=== PATIENT | male | born 1935 | race Caucasian/White ===

== ENCOUNTER 2019-10-26 18:50 | Inpatient (IN) | payer MEDICARE ==
[~2019-10-26] VITALS: Ht 182.9 cm; Wt 86.2 kg
--- NOTE | 2019-10-26 19:10 | NUR ---
PT MARGUERITE FROM [facility]. PT WAS MEDICALLY CLEARED AT [facility] AND PLACED ON 5150 ON 10/26/19 @ 1040, DANGER TO SELF WITH PLAN TO OVERDOSE. PT ARRIVED TO [facility] ER NEEDING RAPID COVID TEST. PT CALM AND COOPERATIVE. VITAL SIGNS STABLE. NO ACUTE DISTRESS NOTED AT THIS TIME. SITTER AT BEDSIDE. WILL CONTINUE TO MONITOR
--- NOTE | 2019-10-26 19:36 | NUR ---
COVID SWAB COLLECTED. CALLED LAB FOR UNDERGROUND UTILITY LOCATOR
[2019-10-26 20:00] VITALS: BP 162/95
--- NOTE | 2019-10-26 21:26 | NUR ---
Ej swain in [facility] - 10/26/19 at 2138 by DANDRE JUAN HERNANDEZ
--- NOTE | 2019-10-26 21:26 | NUR ---
REC'D NEG COVID RESULTS BY LYNETTE FROM LAB. AWARE
--- NOTE | 2019-10-26 21:32 | NUR ---
REPORT GIVEN TO TANIYA EDGAR FOR DANIELLE
--- NOTE | 2019-10-26 21:48 | NUR ---
LAB CALLED REGARDING COVID NEGATIVE RESULT.
--- NOTE | 2019-10-26 21:59 | NUR ---
PT TRANSFERRED TO [facility] IN STABLE CONDITION
--- NOTE | 2019-10-26 22:00 | NUR ---
GOS GARDEN IMPLEMENT MECHANIC NOTES: ADMITTED 84 Y/O MALE PATIENT FROM [facility] TO [facility] ER & THEN TO [facility] ON 5150 HOLD, DANGER TO HIMSELF, SUICIDAL IDEATION WITH PLAN & INTENTION TO OVERDOSE RELATED TO RECENT FINANCIAL STRESSORS. PT. REPORTS VERY SEVERE DEPRESSION & ANXIETY & NOT ABLE TO CONTRACT FOR SAFETY IF DISCHARGED. UPON FACE TO FACE ASSESSMENT PATIENT IS A & O X 3 WITH POOR CONCENTRATION, QUIET, DEPRESSED, VERBALIZED SI DUE TO MONEY PROBLEM BUT NO PLAN SPECIFIED. ANXIOUS, DISORGANIZED, DISHEVELED. PT. IS POOR HISTORIAN, POOR INSIGHT, POOR JUDGEMENT, PT. SIGNED ADMISSION CONSENT PAPERS. BOTH MD AWARE AND NOTIFIED OF THE ADMISSION. BELONGINGS/CONTRABAND DONE. SKIN ASSESSMENT DONE. PATIENT ALLOWED UPPER/LOWER EXTREMITIES ASSESSMENT ONLY. PT. RIGHTS DISCUSS BY MANAGER BUSINESS SYSTEMS, PROVIDE THE PT. WITH HANDBOOK, AND MEDICATIONS GUIDE, ENVIRONMENTAL SAFETY CHECK DONE, ENCOURAGED PT. VERBALIZE HIS FEELINGS TO STAFF, ORIENTED TO UNIT POLICY, NO ACUTE DISTRESS NOTED, VITAL SIGNS WNL. DENIES ANY PAIN AT THIS TIME, ENVIRONMENTAL SAFETY CHECKS DONE. BED ALARM ON. BED IN LOW LOCKED POSITION. PT. IS IN LINE OF SIGHT OBSERVATION, Q 15 MINUTES FREQUENT VISUAL CHECKS BEING DONE. WILL CONTINUE TO MONITOR Q15 FOR SAFETY AND BEHAVIOR.
--- NOTE | 2019-10-26 22:15 | NUR ---
GPS RN NOTE CALLED PATIENT'S BRANDY WELDON & SPOKE TO HER & INFORMED HER ABOUT PATIENT'S ADMISSION TO [facility]IT IN ROOM 215-2.
[2019-10-26 22:45] VITALS: BP 155/84
[2019-10-26] MEDS ORDERED: MAGNESIUM HYDROXIDE 30 ML UDC PO PRN (23:30)
[2019-10-26] MEDS ORDERED: MAG HYDROX/AL HYDROX/SIMETH 30 ML UDC PO PRN (23:30)
[2019-10-26] MEDS ORDERED: LORAZEPAM 0.5 MG TABLET PO PRN (23:30)
[2019-10-26] MEDS ORDERED: ACETAMINOPHEN 325 MG TABLET PO PRN (23:30)
[2019-10-26] MEDS ORDERED: BLOOD SUGAR DIAGNOSTIC 1 EACH STRIP IN ONE (23:30)
[2019-10-27] MEDS ORDERED: UBID10CA9 PO (00:42)
[2019-10-27] MEDS ORDERED: PANT40TA2 PO (00:42)
[2019-10-27] MEDS ORDERED: ASPI-1420 PO (00:42)
[2019-10-27] MEDS ORDERED: NIFE30TA2 PO (00:42)
[2019-10-27] MEDS ORDERED: POTA20TA10 PO (00:42)
[2019-10-27] MEDS ORDERED: ATEN50TA PO (00:42)
[2019-10-27] MEDS ORDERED: DUTA0.5C PO (00:42)
[2019-10-27] MEDS ORDERED: CHOL400T11 PO (00:42)
[2019-10-27] MEDS ORDERED: METF-442 PO (00:42)
[2019-10-27] MEDS ORDERED: FESO4TAB PO (00:42)
[2019-10-27] MEDS ORDERED: HYDR-4076 PO (00:42)
[2019-10-27] MEDS ORDERED: ROSU20TA2 PO (00:42)
[2019-10-27] MEDS ORDERED: ESCI20TA PO (00:42)
[2019-10-27] MEDS ORDERED: CHLO25TA11 PO (00:42)
[2019-10-27] MEDS ORDERED: LOSA100T3 PO (00:42)
[2019-10-27] MEDS ORDERED: TAMS-12 PO (00:45)
[2019-10-27] MEDS ORDERED: IPRA21SP BNOSTRILS (00:47)
[2019-10-27] MEDS ORDERED: DOCO1CAP4 PO (00:53)
--- NOTE | 2019-10-27 01:00 | NUR ---
MED RECON DONE BY Rhiannon AGUILAR
--- NOTE | 2019-10-27 02:00 | NUR ---
GPS RN NOTE: PATIENT HAD BILATERAL LOWER EXTREMITIES SYLVAIN HOSE STOCKINGS ON UPON ADMISSION FROM [facility], PATIENT REFUSED TO TAKE THEM OFF & STATED," I HAVE HIGH BP & NURSE PUT THEM ON ME AT OTHER HOSPITAL TO PREVENT BP FLUCTUATIONS & I WANT TO KEEP THEM ON." WILL ENDORSE TO AM RN FOR CLOSE MONITORING FOR SAFETY & BEHAVIOR.
--- NOTE | 2019-10-27 06:36 | NUR ---
GPS RN NOTE PATIENT HAS BILATERAL HEARING AIDS IN A CASE WITH A COMPLEX CARE NURSE PRACTITIONER & CHARGING AT NURSES STATION AT THIS TIME. WILL ENDORSE TO AM RN FOR CONTINUITY OF CARE.
--- NOTE | 2019-10-27 06:42 | NUR ---
GPS RN CLOSING NOTE PATIENT HAS SLEPT WELL AT NIGHT AFTER HIS ADMISSION TO [facility]. NO ACUTE CHANGES NOTED. SLEEPING AT THIS TIME. NO BEHAVIOR EPISODE NOTED.
[2019-10-27 07:16] LABS: ALANINE AMINOTRANSFERASE 12 U/L (12-78); ALBUMIN 3.3 g/dL (3.4-5.0); ALKALINE PHOSPHATASE 59 U/L (46-116); ASPARTATE AMINOTRANSFERASE 12 U/L (15-37); BILIRUBIN,TOTAL 0.5 mg/dL (0.2-1.0); CALCIUM, SERUM 8.7 mg/dL (8.5-10.1); CARBON DIOXIDE 27 mmol/L (21-32); CHLORIDE 102 mmol/L (98-107); CREATININE 1.4 mg/dL (0.6-1.3); GLUCOSE 166 mg/dL (74-106); POTASSIUM 3.7 mmol/L (3.5-5.1); SODIUM SERUM 138 mmol/L (136-145); TOTAL PROTEIN, SERUM 6.2 g/dL (6.4-8.2); UREA NITROGEN, BLOOD 31 mg/dL (7-18)
[2019-10-27 07:22] LABS: CHOLESTEROL 152 mg/dL (<200); HDL CHOLESTEROL 34 mg/dL (40-60); LDL 101 mg/dL (0-99); TRIGLYCERIDES 124 mg/dL (30-150)
[2019-10-27 08:00] VITALS: BP 150/77
[2019-10-27] MEDS: POTASSIUM CHLORIDE 20 MEQ TAB.PRT.SR PO SCH ×2 (08:53→16:05)
[2019-10-27] MEDS: DUTASTERIDE (0.5 MG) 0.5 MG CAPSULE PO SCH (08:53)
[2019-10-27] MEDS: PANTOPRAZOLE 40 MG TABLET.DR PO SCH (08:53)
[2019-10-27] MEDS: ASPIRIN EC 81 MG TABLET.DR PO SCH (08:53)
[2019-10-27] MEDS: hydrALAZINE HCL 25 MG TABLET PO SCH ×2 (08:54→21:00)
[2019-10-27] MEDS: LOSARTAN POTASSIUM 50 MG TABLET PO SCH (08:54)
[2019-10-27] MEDS: ATENOLOL 50 MG TABLET PO SCH ×2 (08:54→16:05)
[2019-10-27] MEDS: NIFEdipine XL (30MG) 30 MG TAB PO SCH (08:55)
[2019-10-27] MEDS ORDERED: DOCOSAHEXANOIC ACID PO SCH (09:00)
[2019-10-27] MEDS ORDERED: UBIDECARENONE 10 MG PO SCH (09:00)
[2019-10-27] MEDS ORDERED: EPA PO SCH (09:00)
[2019-10-27] MEDS ORDERED: METFORMIN 500 MG TABLET PO SCH (09:00)
[2019-10-27] MEDS ORDERED: CHLORTHALIDONE 25 MG PO SCH (09:00)
[2019-10-27] MEDS: CHOLECALCIFEROL 1,000 UNIT TABLET (VIT D3) PO SCH (09:44)
--- NOTE | 2019-10-27 11:23 | NUR ---
FAMILY CONTACT: DARIAN contacted pts Marilee ([phone]) to discuss collateral information, treatment, and discharge plan. DARIAN left a voicemail for callback.
--- NOTE | 2019-10-27 11:30 | NUR ---
GPS/RN-NOTES BUTTER GRADER CALLED PATIENT'S REGARDING X3 NON FORMULARY MEDICATIONS,STILL AWAITING HER CALL BACK.
--- NOTE | 2019-10-27 12:20 | NUR ---
INITIAL DISCHARGE PLAN: Once stable for discharge, pt will return home to [facility] [place] [address]. SW attempted to speak with Marilee ([phone]) and left a voicemail for callback. DARIAN will help form a safe and proper discharge in collaboration with .
[2019-10-27] MEDS ORDERED: DEXTROSE 50%-WATER 50 ML DISP.SYRIN IV PRN (14:30)
[2019-10-27 16:00] VITALS: BP 122/70
[2019-10-27] MEDS: DIVALPROEX SODIUM 250 MG TABLET.DR PO SCH (16:07)
[2019-10-27] MEDS: BLOOD SUGAR DIAGNOSTIC 1 EACH STRIP VI SCH ×2 (16:42→21:40)
[2019-10-27] MEDS: INSULIN REGULAR, HUMAN 100 UNIT/ML 3 ML VIAL SQ PRN (17:38)
--- NOTE | 2019-10-27 18:38 | NUR ---
GPS/RN-NOTES STILL AWAITING FOR CALL BACK FROM THE REGARDING NON FORMULARY MEDICATIONS. CALLED TWICE BUT NO CALL BACK AT THIS TIME,ALSO NEED URINE COLLECTION FOR URINALYSIS, UNABLE TO COLLECT AT THIS TIME,PATIENT STATED" I JUST WENT TO THE BATHROOM". WILL ENDORSE TO INCOMING NURSE FOR COLLECTION AND CONTINUITY OF CARE.
--- NOTE | 2019-10-27 18:51 | NUR ---
GPS/RN-NOTES BILATERAL HEARING AID WITH THE PATIENT .PATIENT REQUESTING TO HAVE IT ON UNTIL 2099. WILL ENDORSE TO INCOMING NURSE TO FOLLOW UP AND TO CHARGE THE HEARING AID.
[2019-10-27 19:34] VITALS: BP 128/74
[2019-10-27 21:20] LABS: APPEARANCE,URINE CLEAR (CLEAR); BILIRUBIN,URINE NEGATIVE (NEGATIVE); BLOOD, URINE NEGATIVE Ery/uL (NEGATIVE); COLOR,URINE YELLOW (YELLOW); KETONES,URINE NEGATIVE (NEGATIVE); LEUKOCYTE ESTERASE ,URINE NEGATIVE (NEGATIVE); NITRITE, URINE NEGATIVE (NEGATIVE); PROTEIN,URINE 30 mg/dl (NEGATIVE); UGLUCOSE NEGATIVE (NEGATIVE); UROBILINOGEN,URINE 0.2 EU/dL (0.2)
[2019-10-27 21:26] LABS: BACTERIA,URINE Few /HPF (None Seen); HYALINE CASTS, URINE Few /LPF (None Seen); RBC,URINE 0-2 /HPF (0-2); SQUAMOUS EPITHELIAL CELL,UR Few /HPF (None Seen); WBC,URINE 0-2 /HPF (0-3)
[2019-10-27 21:27] LABS: EOSINOPHIL,URINE None Seen
[2019-10-27] MEDS: TAMSULOSIN 0.4 MG CAP.SR.24H PO SCH (21:28)
[2019-10-27] MEDS: ATORVASTATIN 40 MG TABLET PO SCH (21:28)
[2019-10-27 21:31] LABS: CREATININE, URINE 184.3 MG/DL (30.0-125.0); URINE TOTAL PROTEIN 66.5 mg/dL (0-11.9)
[2019-10-27] MEDS: *INSULIN REGULAR(HUMULIN R)HUM 100 UNIT/ML VIAL SQ PRN (21:35)
[2019-10-27] MEDS: TEMAZEPAM 7.5 MG CAPSULE PO PRN (21:38)
--- NOTE | 2019-10-27 21:40 | NUR ---
GPS RN NOTES: PATIENT IN THE ROOM, VITAL SIGNS RECHECKED BP142/74, HR-56. HYDRALAZINE MEDICATION NOT ADMINISTERED PATIENT HAS A LOW HEART RATE THIS TIME. PATIENT THOUGH REQUESTED FOR SLEEPING MEDICATION. RESTORIL 7.5 MG GIVEN ORALLY PRN ORDER. WILL CONTINUE TO MONITOR PATIENT.
[2019-10-28 07:16] LABS: BASOPHILS % (AUTO) 0.3 % (0.0-2.0); EOSINOPHILS % (AUTO) 2.7 % (0.0-6.0); HEMATOCRIT 41 % (39-51); HEMOGLOBIN 13.5 g/dL (13.5-17.5); LYMPHOCYTES # (AUTO) 1.7 /CMM (0.8-4.8); LYMPHOCYTES % (AUTO) 30.5 % (20.0-44.0); MEAN CORPUSCULAR HGB CONC 33 g/dl (31.0-36.0); MEAN CORPUSCULAR VOLUME 89 fL (80-96); MONOCYTES # (AUTO) 0.5 /CMM (0.1-1.30); MONOCYTES % (AUTO) 8.6 % (2.0-12.0); NEUTROPHILS # (AUTO) 3.2 /CMM (1.8-8.9); NEUTROPHILS % (AUTO) 57.9 % (43.0-81.0); PLATELET COUNT (AUTO) 199 /CMM (150-450); RED BLOOD CELL COUNT(AUTO) 4.56 MIL/uL (4.5-6.0); WHITE BLOOD COUNT (AUTO) 5.6 K/uL (4.3-11.0)
[2019-10-28] MEDS: BLOOD SUGAR DIAGNOSTIC 1 EACH STRIP VI SCH ×4 (07:31→21:12)
[2019-10-28] MEDS: INSULIN REGULAR, HUMAN 100 UNIT/ML 3 ML VIAL SQ PRN ×2 (07:32→12:07)
[2019-10-28 07:39] LABS: CREATINE KINASE, TOTAL 27 U/L (39-308); THYROID STIMULATING HORMONE 2.428 uIU/mL (0.358-3.74)
[2019-10-28 07:41] LABS: ALANINE AMINOTRANSFERASE 13 U/L (12-78); ALBUMIN 3.2 g/dL (3.4-5.0); ALKALINE PHOSPHATASE 56 U/L (46-116); ASPARTATE AMINOTRANSFERASE 13 U/L (15-37); BILIRUBIN,TOTAL 0.6 mg/dL (0.2-1.0); CALCIUM, SERUM 8.6 mg/dL (8.5-10.1); CHLORIDE 103 mmol/L (98-107); CREATININE 1.9 mg/dL (0.6-1.3); GLUCOSE 133 mg/dL (74-106); MAGNESIUM 1.7 mg/dL (1.8-2.4); POTASSIUM 3.9 mmol/L (3.5-5.1); SODIUM SERUM 139 mmol/L (136-145); TOTAL PROTEIN, SERUM 6.2 g/dL (6.4-8.2); UREA NITROGEN, BLOOD 39 mg/dL (7-18)
[2019-10-28 07:49] LABS: CARBON DIOXIDE 25 mmol/L (21-32)
[2019-10-28] MEDS: PANTOPRAZOLE 40 MG TABLET.DR PO SCH (07:55)
[2019-10-28 08:00] VITALS: BP 123/69
[2019-10-28] MEDS: DIVALPROEX SODIUM 250 MG TABLET.DR PO SCH ×3 (08:56→16:52)
[2019-10-28] MEDS: LINAGLIPTIN 5 MG TABLET PO SCH (08:56)
[2019-10-28] MEDS: hydrALAZINE HCL 25 MG TABLET PO SCH ×2 (08:56→21:08)
[2019-10-28] MEDS: POTASSIUM CHLORIDE 20 MEQ TAB.PRT.SR PO SCH (08:56)
[2019-10-28] MEDS: NIFEdipine XL (30MG) 30 MG TAB PO SCH (08:56)
[2019-10-28] MEDS: DUTASTERIDE (0.5 MG) 0.5 MG CAPSULE PO SCH (08:56)
[2019-10-28] MEDS: ASPIRIN EC 81 MG TABLET.DR PO SCH (08:56)
[2019-10-28] MEDS: CHOLECALCIFEROL 1,000 UNIT TABLET (VIT D3) PO SCH (08:56)
[2019-10-28] MEDS: ATENOLOL 50 MG TABLET PO SCH ×2 (08:57→16:52)
[2019-10-28] MEDS: LOSARTAN POTASSIUM 50 MG TABLET PO SCH (08:57)
--- NOTE | 2019-10-28 09:40 | NUR ---
GPS/RN-NOTES DR. SALOMON IN THE UNIT WITH VERBAL ORDER OF 1:1 SITTER FOR SUICIDAL PRECAUTION. NOTED AND CARRIED OUT.RETIREMENT BENEFITS SPECIALIST MADE AWARE BY THE CHARGE NURSE.
--- NOTE | 2019-10-28 10:00 | NUR ---
GPS/RN-NOTES PATIENT LAYING IN BED GUARDED REPAIRER SASH AND DOOR ASSESS FACE TO FACE AND PATIENT VERBALIZED SUICIDAL IDEATION WITH PLAN TO CUT WRIST WITH SHARP OBJECT. REDIRECTED AND ENCOURAGE PATIENT TO ATTEND GROUP ACTIVITY AND VERBALIZE FEELINGS AND CONCERN TO THE STAFF.PATIENT PREFERS TO STAY IN THE ROOM . WILL CONT. 1:1 MONITORING FOR SAFETY.
[2019-10-28] MEDS: ESCITALOPRAM OXALATE (10 MG) 10 MG TABLET PO SCH (10:02)
[2019-10-28] MEDS ORDERED: MAGNESIUM OXIDE 400 MG TABLET PO ONE (12:00)
--- NOTE | 2019-10-28 12:55 | NUR ---
GPS/RN-NOTES DR. DURBIN MADE ROUNDS AROUND 11 AM ,AND MADE AWARE OF PATIENT LABS RESULTS AND STATED" ENCOURAGED PATIENT TO INCREASE FLUID INTAKE AND WILL CHECK LABS TOMORROW. PATIENT MADE AWARE AND VERBALIZED UNDERSTANDING.
[2019-10-28 16:00] VITALS: BP 117/67
[2019-10-28 20:21] VITALS: BP 129/77
[2019-10-28] MEDS: ATORVASTATIN 40 MG TABLET PO SCH (21:08)
[2019-10-28] MEDS: TAMSULOSIN 0.4 MG CAP.SR.24H PO SCH (21:08)
[2019-10-28] MEDS: *INSULIN REGULAR(HUMULIN R)HUM 100 UNIT/ML VIAL SQ PRN (21:17)
[2019-10-28] MEDS: TEMAZEPAM 7.5 MG CAPSULE PO PRN (22:10)
--- NOTE | 2019-10-28 22:13 | NUR ---
GPS RN NOTE: INSOMNIA PT. C/O UNABLE TO SLEEP. ADMINISTERED RESTORIL 7.5 MG PO PRN ORDERED. WILL CONTINUE TO MONITOR FOR SAFETY AND BEHAVIOR.
[2019-10-28 22:33] LABS: CREATININE, URINE 195.6 MG/DL (30.0-125.0); URINE TOTAL PROTEIN 56.1 mg/dL (0-11.9)
[2019-10-28 23:00] LABS: APPEARANCE,URINE CLEAR (CLEAR); BILIRUBIN,URINE NEGATIVE (NEGATIVE); BLOOD, URINE NEGATIVE Ery/uL (NEGATIVE); COLOR,URINE YELLOW (YELLOW); KETONES,URINE NEGATIVE (NEGATIVE); LEUKOCYTE ESTERASE ,URINE NEGATIVE (NEGATIVE); NITRITE, URINE NEGATIVE (NEGATIVE); PROTEIN,URINE 30 mg/dl (NEGATIVE); UGLUCOSE NEGATIVE (NEGATIVE); UROBILINOGEN,URINE 0.2 EU/dL (0.2)
[2019-10-29 00:02] LABS: BACTERIA,URINE None seen /HPF (None Seen); RBC,URINE 0-2 /HPF (0-2)
[2019-10-29 00:03] LABS: HYALINE CASTS, URINE Few /LPF (None Seen); SQUAMOUS EPITHELIAL CELL,UR Few /HPF (None Seen)
[2019-10-29 03:03] LABS: EOSINOPHIL,URINE None Seen
--- NOTE | 2019-10-29 06:15 | NUR ---
GPS RN NOTE: REQUESTED SITTER FOR DAY SHIFT. SPACE PLANNER UNABLE TO PROVIDE AT THIS TIME
[2019-10-29 06:56] LABS: BASOPHILS % (AUTO) 0.3 % (0.0-2.0); EOSINOPHILS % (AUTO) 2.8 % (0.0-6.0); HEMATOCRIT 42 % (39-51); LYMPHOCYTES % (AUTO) 23.4 % (20.0-44.0); MEAN CORPUSCULAR HGB CONC 33 g/dl (31.0-36.0); MEAN CORPUSCULAR VOLUME 90 fL (80-96); MONOCYTES % (AUTO) 7.3 % (2.0-12.0); NEUTROPHILS % (AUTO) 66.2 % (43.0-81.0); PLATELET COUNT (AUTO) 188 /CMM (150-450); WHITE BLOOD COUNT (AUTO) 6.9 K/uL (4.3-11.0)
[2019-10-29 06:57] LABS: LYMPHOCYTES # (AUTO) 1.6 /CMM (0.8-4.8); MONOCYTES # (AUTO) 0.5 /CMM (0.1-1.30); NEUTROPHILS # (AUTO) 4.6 /CMM (1.8-8.9)
[2019-10-29 06:59] LABS: CALCIUM, SERUM 8.8 mg/dL (8.5-10.1); CARBON DIOXIDE 26 mmol/L (21-32); CHLORIDE 103 mmol/L (98-107); CREATININE 1.7 mg/dL (0.6-1.3); GLUCOSE 141 mg/dL (74-106); POTASSIUM 3.8 mmol/L (3.5-5.1); SODIUM SERUM 138 mmol/L (136-145); UREA NITROGEN, BLOOD 39 mg/dL (7-18)
[2019-10-29 07:28] LABS: PTH, INTACT 40 pg/mL (15-65)
--- NOTE | 2019-10-29 07:36 | NUR ---
GPS/RN-NOTES RECEIVED PATIENT LAYING IN BED AWAKE,ALERT X4 ,CALM,GUARDED, FLAT AFFECT WITH DEPRESSED MOOD,NO ACUTE DISTRESS NOTED. THERAPIST RESPIRATORY INTERVIEWED PATIENT IF HE IS SUICIDAL,PATIENT STATED"YES,I WILL CUT MY WRIST WITH SHARP OBJECTS". ENCOURAGED PATIENT TO VERBALIZE FEELINGS AND CONCERN TO THE STAFF AND ATTEND GROUP ACTIVITY TODAY.NO SITTER PROVIDED.CHARGE NURSE IS AWARE. WILL CONT. MONITORING Q15 MINS. FOR SAFETY. Addendum: 10/29/19 at 1118 by ANUP MEIER RN IN ADDITION TO MY ABOVE NOTES ORDER BOOKER WAS AWARE.
[2019-10-29] MEDS: BLOOD SUGAR DIAGNOSTIC 1 EACH STRIP VI SCH ×4 (07:49→21:09)
[2019-10-29 08:00] VITALS: BP 133/82
[2019-10-29] MEDS: DUTASTERIDE (0.5 MG) 0.5 MG CAPSULE PO SCH (08:29)
[2019-10-29] MEDS: ASPIRIN EC 81 MG TABLET.DR PO SCH (08:29)
[2019-10-29] MEDS: PANTOPRAZOLE 40 MG TABLET.DR PO SCH (08:29)
[2019-10-29] MEDS: DIVALPROEX SODIUM 250 MG TABLET.DR PO SCH ×3 (08:29→16:55)
[2019-10-29] MEDS: CHOLECALCIFEROL 1,000 UNIT TABLET (VIT D3) PO SCH (08:29)
[2019-10-29] MEDS: LINAGLIPTIN 5 MG TABLET PO SCH (08:29)
[2019-10-29] MEDS: ESCITALOPRAM OXALATE (10 MG) 10 MG TABLET PO SCH (08:29)
[2019-10-29] MEDS: NIFEdipine XL (30MG) 30 MG TAB PO SCH (08:30)
[2019-10-29] MEDS: ATENOLOL 50 MG TABLET PO SCH ×2 (08:30→16:55)
[2019-10-29] MEDS: hydrALAZINE HCL 25 MG TABLET PO SCH ×2 (08:30→21:00)
[2019-10-29] MEDS: TOLTERODINE 2 MG CAP.SR PO SCH (08:32)
[2019-10-29] MEDS: INSULIN REGULAR, HUMAN 100 UNIT/ML 3 ML VIAL SQ PRN ×2 (08:39→12:07)
--- NOTE | 2019-10-29 13:57 | NUR ---
Dr. Miller came in the unit and ordered to start an IV of NS 1 liter at 125 cc/hr x 1 liter.
[2019-10-29] MEDS ORDERED: IV NS 0.9% 1,000 ML IV ONE (14:00)
[2019-10-29 16:00] VITALS: BP 126/73
--- NOTE | 2019-10-29 18:33 | NUR ---
GPS/RN CLOSING NOTES PATIENT LAYING IN BED INTERMITTENTLY SLEEPING CALM,QUIET NO ACUTE DISTRESS NOTED. PATIENT ON IV FLUID OF NS @ 125MG/HR X1 BAG, INFUSING WELL,WELL TOLERATED. IV SITE ON RIGHT HAND GAUGE 22 INTACT NO S/SX OF COMPLICATION NOTED. ALL NEEDS ATTENDED AND ANTICIPATED. WILL CONT. MONITORING FOR SAFETY AND BEHAVIOR. WILL ENDORSE TO INCOMING NURSE FOR CONTINUITY OF CARE. Addendum: 10/29/19 at 1856 by ANUP MEIER RN BILATERAL HEARING AID WITH PATIENT ,WILL ENDORSE TO INCOMING NURSE.
[2019-10-29 20:00] VITALS: BP 139/73
[2019-10-29] MEDS: ATORVASTATIN 40 MG TABLET PO SCH (21:07)
[2019-10-29] MEDS: TAMSULOSIN 0.4 MG CAP.SR.24H PO SCH (21:08)
[2019-10-29] MEDS: *INSULIN REGULAR(HUMULIN R)HUM 100 UNIT/ML VIAL SQ PRN (21:11)
--- NOTE | 2019-10-29 21:19 | NUR ---
GPS RN NOTES: HELD HYDRALAZINE HELD PTS HYDRALAZINE 25 MG PO DUE AT 2100 DUE TO HEART RATE LESS THAN 60. RECHECKED HEART RATE W/ NOTED 58. CONTINUE TO MONITOR. NO SOB. NO RESP DISTRESS.
[2019-10-29 22:05] VITALS: BP 139/75
--- NOTE | 2019-10-29 22:26 | NUR ---
GPS RN NOTE: INSOMNIA PT. C/O UNABLE TO SLEEP. VITALS CHECKED WNL. NO RESP DISTRESS. BREATHING EVEN AND UNLABORED. NO RESP DISTRESS. NO PAIN AT THIS TIME. ADMINISTERED RESTORIL 7.5 MG PO PRN ORDERED. WILL CONTINUE TO MONITOR FOR SAFETY AND BEHAVIOR.
[2019-10-29] MEDS: TEMAZEPAM 7.5 MG CAPSULE PO PRN (22:30)
[2019-10-30 08:00] VITALS: BP 147/75
[2019-10-30 08:18] LABS: BASOPHILS % (AUTO) 0.4 % (0.0-2.0); EOSINOPHILS % (AUTO) 2.7 % (0.0-6.0); HEMATOCRIT 39 % (39-51); HEMOGLOBIN 13.2 g/dL (13.5-17.5); LYMPHOCYTES # (AUTO) 1.4 /CMM (0.8-4.8); LYMPHOCYTES % (AUTO) 22.9 % (20.0-44.0); MEAN CORPUSCULAR HGB CONC 34 g/dl (31.0-36.0); MEAN CORPUSCULAR VOLUME 89 fL (80-96); MONOCYTES # (AUTO) 0.5 /CMM (0.1-1.30); MONOCYTES % (AUTO) 8.2 % (2.0-12.0); NEUTROPHILS % (AUTO) 65.8 % (43.0-81.0); PLATELET COUNT (AUTO) 188 /CMM (150-450); WHITE BLOOD COUNT (AUTO) 6.1 K/uL (4.3-11.0)
[2019-10-30 08:24] LABS: CALCIUM, SERUM 8.3 mg/dL (8.5-10.1); CARBON DIOXIDE 26 mmol/L (21-32); CHLORIDE 104 mmol/L (98-107); CREATININE 1.4 mg/dL (0.6-1.3); GLUCOSE 125 mg/dL (74-106); MAGNESIUM 1.6 mg/dL (1.8-2.4); PHOSPHORUS 3.5 mg/dL (2.5-4.9); POTASSIUM 3.8 mmol/L (3.5-5.1); SODIUM SERUM 138 mmol/L (136-145); UREA NITROGEN, BLOOD 32 mg/dL (7-18)
[2019-10-30] MEDS: LINAGLIPTIN 5 MG TABLET PO SCH (08:52)
[2019-10-30] MEDS: NIFEdipine XL (30MG) 30 MG TAB PO SCH (08:52)
[2019-10-30] MEDS: PANTOPRAZOLE 40 MG TABLET.DR PO SCH (08:53)
[2019-10-30] MEDS: BLOOD SUGAR DIAGNOSTIC 1 EACH STRIP VI SCH ×4 (08:53→21:49)
[2019-10-30] MEDS: ASPIRIN EC 81 MG TABLET.DR PO SCH (08:53)
[2019-10-30] MEDS: CHOLECALCIFEROL 1,000 UNIT TABLET (VIT D3) PO SCH (08:53)
[2019-10-30] MEDS: ATENOLOL 50 MG TABLET PO SCH ×2 (08:53→17:01)
[2019-10-30] MEDS: DUTASTERIDE (0.5 MG) 0.5 MG CAPSULE PO SCH (08:57)
[2019-10-30] MEDS: hydrALAZINE HCL 25 MG TABLET PO SCH ×2 (08:57→21:25)
[2019-10-30] MEDS: DIVALPROEX SODIUM 250 MG TABLET.DR PO SCH ×3 (08:57→17:00)
[2019-10-30] MEDS: ESCITALOPRAM OXALATE (10 MG) 10 MG TABLET PO SCH (08:58)
[2019-10-30] MEDS: TOLTERODINE 2 MG CAP.SR PO SCH (09:12)
[2019-10-30] MEDS ORDERED: MAGNESIUM OXIDE 400 MG TABLET PO ONE (09:30)
--- NOTE | 2019-10-30 11:25 | NUR ---
GPS/RN-NOTES RECEIVED PATIENT LAYING IN BED AWAKE,ALERT X4 ISOLATIVE ,GUARDED, DEPRESSED MOOD,MINIMUM INTERACTION WITH STAFF. PATIENT EXPRESSING SUICIDAL THOUGHTS WITH THE PLAN TO CUT HIS WRIST. PATIENT STATED"I WILL DO IT, I WILL DO IT ". ENCOURAGED PATIENT TO VERBALIZE FEELINGS AND CONCERN TO THE STAFF 1:1 SITTER AT THE BED SIDE WILL CONT. MONITORING Q15 MINS. FOR SAFETY AND BEHAVIOR NOTIFIED
[2019-10-30] MEDS: INSULIN REGULAR, HUMAN 100 UNIT/ML 3 ML VIAL SQ PRN ×2 (11:56→17:29)
--- NOTE | 2019-10-30 14:26 | NUR ---
GPS RN NOTE: DR ISBELL NOTIFIED OT PE TODAY LAB RESULT, NO NEW ORDERS AT THIS TIME, LIVE HEP LOC INTACT.
[2019-10-30 16:00] VITALS: BP 120/61
--- NOTE | 2019-10-30 20:05 | NUR ---
GPS-RN OPENING NOTE: RECEIVED PATIENT AWAKE, A/OX3, NO ACUTE DISTRESS NOTED. GUARDED, DEPRESSED MOOD, MED COMPLIANT, PATIENT STILL VERBALIZING SUICIDAL PLAN TO CUT WRIST WITH SHARP OBJECTS. DENIES HI/AVH AT THIS TIME. ON 1:1 SITTER AT BEDSIDE FOR SAFETY AND MONITORING. AMBULATES INDEPENDENTLY. SAFETY PRECAUTIONS IMPLEMENTED. NO AGITATION NOTED. WILL CONTINUE TO MONITOR FOR SAFETY AND BEHAVIOR.
[2019-10-30 20:26] VITALS: BP 132/83
[2019-10-30] MEDS: ATORVASTATIN 40 MG TABLET PO SCH (21:25)
[2019-10-30] MEDS: TAMSULOSIN 0.4 MG CAP.SR.24H PO SCH (21:25)
[2019-10-30] MEDS: TEMAZEPAM 7.5 MG CAPSULE PO PRN (21:49)
--- NOTE | 2019-10-30 21:51 | NUR ---
GPS RN NOTE: INSOMNIA PATIENT C/O UNABLE TO SLEEP. ADMINISTERED RESTORIL 7.5 MG 1 CAP PO GIVEN. WILL CONTINUE TO MONITOR FOR EFFECTIVENESS.
[2019-10-30] MEDS: *INSULIN REGULAR(HUMULIN R)HUM 100 UNIT/ML VIAL SQ PRN (21:55)
[2019-10-31] MEDS: BLOOD SUGAR DIAGNOSTIC 1 EACH STRIP VI SCH ×4 (07:40→21:23)
[2019-10-31 07:59] LABS: CALCIUM, SERUM 8.6 mg/dL (8.5-10.1); CARBON DIOXIDE 26 mmol/L (21-32); CHLORIDE 105 mmol/L (98-107); CREATININE 1.4 mg/dL (0.6-1.3); GLUCOSE 118 mg/dL (74-106); MAGNESIUM 1.6 mg/dL (1.8-2.4); POTASSIUM 3.3 mmol/L (3.5-5.1); SODIUM SERUM 139 mmol/L (136-145); UREA NITROGEN, BLOOD 28 mg/dL (7-18)
[2019-10-31 08:00] VITALS: BP 151/90
[2019-10-31] MEDS: DIVALPROEX SODIUM 250 MG TABLET.DR PO SCH ×3 (08:08→16:50)
[2019-10-31] MEDS: ESCITALOPRAM OXALATE (10 MG) 10 MG TABLET PO SCH (08:08)
[2019-10-31] MEDS: PANTOPRAZOLE 40 MG TABLET.DR PO SCH (08:08)
[2019-10-31] MEDS: ASPIRIN EC 81 MG TABLET.DR PO SCH (08:08)
[2019-10-31] MEDS: LINAGLIPTIN 5 MG TABLET PO SCH (08:08)
[2019-10-31] MEDS: DUTASTERIDE (0.5 MG) 0.5 MG CAPSULE PO SCH (08:08)
[2019-10-31] MEDS: hydrALAZINE HCL 25 MG TABLET PO SCH ×2 (08:09→21:22)
[2019-10-31] MEDS: CHOLECALCIFEROL 1,000 UNIT TABLET (VIT D3) PO SCH (08:10)
[2019-10-31] MEDS: NIFEdipine XL (30MG) 30 MG TAB PO SCH (08:10)
[2019-10-31] MEDS: TOLTERODINE 2 MG CAP.SR PO SCH (08:17)
[2019-10-31] MEDS: ATENOLOL 50 MG TABLET PO SCH ×2 (08:17→16:50)
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
[2019-10-31] MEDS ORDERED: POTASSIUM CHLORIDE 20 MEQ TAB.PRT.SR PO ONE (09:30)
--- NOTE | 2019-10-31 10:05 | NUR ---
RN NOTE- MAT BATTERY PARTS ASSEMBLER DISCUSSED PT CONDITION AND 1:1 STATUS W THIS RN AND SPOKE W PT REGARDING HIS SI AND THINKING AT THIS TIME. PT REPORTED CONTINUING POSITIVE SI. SHE ENCOURAGED AND SPOKE TO HIM REGARDING HIS FAMILY SUPPORT AND ENCOURAGED INTERACTION.
[2019-10-31] MEDS ORDERED: MAGNESIUM OXIDE 400 MG TABLET PO ONE (11:00)
[2019-10-31] MEDS: INSULIN REGULAR, HUMAN 100 UNIT/ML 3 ML VIAL SQ PRN ×2 (12:11→17:26)
[2019-10-31] MEDS: ARIPIPRAZOLE 2 MG TABLET PO SCH ×2 (13:59→16:50)
--- NOTE | 2019-10-31 14:20 | NUR ---
RN NOTE- SPOKE W DR SALOMON AND CLARIFIED DC 1:1 SITTER FOR THIS PT CONTRACTS FOR SAFETY AT FACILITY AND DR SALOMON AWARE. ADVISED TO MONITOR PT AND INFORM HER OF ANY CHANGES. WILL CONTINUE CLOSE MONITORING OF THIS PT . DC 1:1 AT THIS TIME.
--- NOTE | 2019-10-31 15:33 | NUR ---
INDIVIDUAL INTERVENTION: SW met with pt to assess for suicidality. Pt was irritable and stated, "I don't want to talk I just want to ." SW encouraged pt to process his feelings and pt refused.
[2019-10-31 16:00] VITALS: BP 125/71
--- NOTE | 2019-10-31 16:00 | NUR ---
RN NOTE- PERIPHERAL IV SITE DC AT THIS TIME, REMOVED FROM RT HAND. TOLERATED WELL.
[2019-10-31 20:25] VITALS: BP 130/72
[2019-10-31] MEDS: TAMSULOSIN 0.4 MG CAP.SR.24H PO SCH (21:23)
[2019-10-31] MEDS: ATORVASTATIN 40 MG TABLET PO SCH (21:23)
[2019-10-31] MEDS: *INSULIN REGULAR(HUMULIN R)HUM 100 UNIT/ML VIAL SQ PRN (21:24)
[2019-10-31] MEDS: TEMAZEPAM 7.5 MG CAPSULE PO PRN (21:25)
[2019-11-01 06:13] LABS: *SPE ALBUMIN 2.8 g/dL (2.9-4.4); *SPE ALPHA-1-GLOBULIN 0.2 g/dL (0.0-0.4); *SPE ALPHA-2-GLOBULIN 0.7 g/dL (0.4-1.0); *SPE GLOBULIN, TOTAL 2.7 g/dL (2.2-3.9); *SPE M-SPIKE Not Observed g/dL (Not Observed); *SPEGAMMA GLOBULIN 0.7 g/dL (0.4-1.8)
[2019-11-01] MEDS: PANTOPRAZOLE 40 MG TABLET.DR PO SCH (07:28)
[2019-11-01] MEDS: INSULIN REGULAR, HUMAN 100 UNIT/ML 3 ML VIAL SQ PRN ×3 (07:35→17:18)
[2019-11-01] MEDS: BLOOD SUGAR DIAGNOSTIC 1 EACH STRIP VI SCH ×4 (07:36→21:23)
[2019-11-01 08:00] VITALS: BP 147/90
[2019-11-01] MEDS: ARIPIPRAZOLE 2 MG TABLET PO SCH ×3 (08:29→16:30)
[2019-11-01] MEDS: ESCITALOPRAM OXALATE (10 MG) 10 MG TABLET PO SCH (08:30)
[2019-11-01] MEDS: DUTASTERIDE (0.5 MG) 0.5 MG CAPSULE PO SCH (08:30)
[2019-11-01] MEDS: CHOLECALCIFEROL 1,000 UNIT TABLET (VIT D3) PO SCH (08:30)
[2019-11-01] MEDS: LINAGLIPTIN 5 MG TABLET PO SCH (08:30)
[2019-11-01] MEDS: NIFEdipine XL (30MG) 30 MG TAB PO SCH (08:30)
[2019-11-01] MEDS: hydrALAZINE HCL 25 MG TABLET PO SCH ×2 (08:31→21:21)
[2019-11-01] MEDS: DIVALPROEX SODIUM 250 MG TABLET.DR PO SCH ×3 (08:31→16:30)
[2019-11-01] MEDS: ATENOLOL 50 MG TABLET PO SCH ×2 (08:31→16:30)
[2019-11-01] MEDS: ASPIRIN EC 81 MG TABLET.DR PO SCH (08:31)
[2019-11-01] MEDS: TOLTERODINE 2 MG CAP.SR PO SCH (08:37)
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
--- NOTE | 2019-11-01 11:57 | NUR ---
FAMILY CONTACT: SW received a call from pts daughter Jasbir ([phone]) and informed SW that pts criminal justice lawyer was also on the other line. SW stated that she would not be able to continue the call while the criminal justice lawyer was present and stated that SW would only speak to daughter. Daughter then stated that she wanted SW to have pt sign Power of Derrick Operator paperwork and SW informed her that legally pt is unable to sign any legal documents while on a psychiatric hold. Daughter understood and stated she would call SW at a later time.
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
[2019-11-01 16:00] VITALS: BP 143/72
[2019-11-01 20:02] VITALS: BP 128/72
[2019-11-01] MEDS: ATORVASTATIN 40 MG TABLET PO SCH (21:21)
[2019-11-01] MEDS: TEMAZEPAM 7.5 MG CAPSULE PO PRN (21:21)
[2019-11-01] MEDS: TAMSULOSIN 0.4 MG CAP.SR.24H PO SCH (21:21)
[2019-11-02 08:00] VITALS: BP 151/86
[2019-11-02] MEDS: DIVALPROEX SODIUM 250 MG TABLET.DR PO SCH ×3 (09:19→17:31)
[2019-11-02] MEDS: BLOOD SUGAR DIAGNOSTIC 1 EACH STRIP VI SCH ×4 (09:19→21:18)
[2019-11-02] MEDS: ARIPIPRAZOLE 2 MG TABLET PO SCH ×3 (09:20→17:31)
[2019-11-02] MEDS: ESCITALOPRAM OXALATE (10 MG) 10 MG TABLET PO SCH ×2 (09:20→14:00)
[2019-11-02] MEDS: PANTOPRAZOLE 40 MG TABLET.DR PO SCH (09:20)
[2019-11-02] MEDS: DUTASTERIDE (0.5 MG) 0.5 MG CAPSULE PO SCH (09:20)
[2019-11-02] MEDS: CHOLECALCIFEROL 1,000 UNIT TABLET (VIT D3) PO SCH (09:20)
[2019-11-02] MEDS: ASPIRIN EC 81 MG TABLET.DR PO SCH (09:20)
[2019-11-02] MEDS: LINAGLIPTIN 5 MG TABLET PO SCH (09:21)
[2019-11-02] MEDS: NIFEdipine XL (30MG) 30 MG TAB PO SCH (09:21)
[2019-11-02] MEDS: hydrALAZINE HCL 25 MG TABLET PO SCH ×3 (09:21→21:18)
[2019-11-02] MEDS: ATENOLOL 50 MG TABLET PO SCH ×2 (09:21→17:32)
[2019-11-02] MEDS: TOLTERODINE 2 MG CAP.SR PO SCH (09:25)
[2019-11-02] MEDS: INSULIN REGULAR, HUMAN 100 UNIT/ML 3 ML VIAL SQ PRN ×2 (11:45→18:00)
--- NOTE | 2019-11-02 15:34 | NUR ---
INDIVIDUAL INTERVENTION: SW met with pt to assess for suicidality. Pt states he does not want to hurt his family and states he is feeling a little better but the thoughts of his family being better off without him are still constantly haunting him.
[2019-11-02 16:00] VITALS: BP 124/64
[2019-11-02 19:57] VITALS: BP 142/75
[2019-11-02] MEDS: DONEPEZIL 5 MG TABLET PO SCH (21:18)
[2019-11-02] MEDS: ATORVASTATIN 40 MG TABLET PO SCH (21:18)
[2019-11-02] MEDS: TAMSULOSIN 0.4 MG CAP.SR.24H PO SCH (21:18)
[2019-11-02] MEDS: *INSULIN REGULAR(HUMULIN R)HUM 100 UNIT/ML VIAL SQ PRN (21:28)
[2019-11-02] MEDS: TEMAZEPAM 7.5 MG CAPSULE PO PRN (22:15)
--- NOTE | 2019-11-02 22:15 | NUR ---
GPS RN NOTE: INSOMNIA PT. C/O UNABLE TO SLEEP. ADMINISTERED RESTORIL 7.5 MG PO PRN ORDERED. WILL CONTINUE TO MONITOR FOR SAFETY AND BEHAVIOR.
[2019-11-03] MEDS: hydrALAZINE HCL 25 MG TABLET PO SCH ×3 (05:12→21:13)
[2019-11-03 08:00] VITALS: BP 147/73
[2019-11-03] MEDS: BLOOD SUGAR DIAGNOSTIC 1 EACH STRIP VI SCH ×5 (08:04→21:13)
--- NOTE | 2019-11-03 08:05 | NUR ---
GPS/RN NOTES BS 116MG/DL 0 COVERAGE.
[2019-11-03] MEDS: CHOLECALCIFEROL 1,000 UNIT TABLET (VIT D3) PO SCH (08:50)
[2019-11-03] MEDS: ASPIRIN EC 81 MG TABLET.DR PO SCH (08:50)
[2019-11-03] MEDS: ARIPIPRAZOLE 2 MG TABLET PO SCH ×3 (08:51→16:20)
[2019-11-03] MEDS: DUTASTERIDE (0.5 MG) 0.5 MG CAPSULE PO SCH (08:51)
[2019-11-03] MEDS: TOLTERODINE 2 MG CAP.SR PO SCH (08:51)
[2019-11-03] MEDS: LINAGLIPTIN 5 MG TABLET PO SCH (08:51)
[2019-11-03] MEDS: DIVALPROEX SODIUM 250 MG TABLET.DR PO SCH ×3 (08:53→16:20)
[2019-11-03] MEDS: ESCITALOPRAM OXALATE (10 MG) 10 MG TABLET PO SCH ×2 (08:53→12:32)
[2019-11-03] MEDS: PANTOPRAZOLE 40 MG TABLET.DR PO SCH (08:53)
[2019-11-03] MEDS: NIFEdipine XL (30MG) 30 MG TAB PO SCH (08:55)
[2019-11-03] MEDS: ATENOLOL 50 MG TABLET PO SCH ×2 (08:55→16:22)
[2019-11-03] MEDS: INSULIN REGULAR, HUMAN 100 UNIT/ML 3 ML VIAL SQ PRN ×2 (11:58→17:09)
--- NOTE | 2019-11-03 12:31 | NUR ---
FAMILY CONTACT: SW received a call from pts zaria Hunt ([phone]) stating that she needed to talk to the psychiatrist and the neurologist as she did not know what was going on with pt. then stated that she wanted to kill herself because she could not handle it anymore. SW then asked if she had intent and plan and stated, "I just want to kill myself I can't handle all this I'm going crazy." SW informed that she was going to call 911 and pt then stated "no no I'm not going to kill myself my two kids [facility], I'm just saying that." SW provided crisis intervention and was able to reduce the intensity of 's emotional, mental, and behavioral reaction. SW helped return to an appropriate level of functioning. SW provided with information regarding placement and also informed her that the psychiatrist and neurologist had been paged and would be giving her a call. stated that she will wait for their call and verbalized that until then there was nothing she would do but wait.
--- NOTE | 2019-11-03 12:32 | NUR ---
RN-CO: CALLED DR KIM 2X LEFT VOICE MAIL TO CALL PATIENT'S FATEMEH BADILLO.
--- NOTE | 2019-11-03 12:48 | NUR ---
WELLNESS CHECK: SW contacted 911 and informed them of pt 's suicidal ideation. Track Machine Operator Repairer [id number] responded to the call and stated he would be sending officers to conduct a wellness check on pts .
--- NOTE | 2019-11-03 15:21 | NUR ---
WELLNESS CHECK: SW received a call from Officer Eben with [employer] stating that CLAUDIAD entered pts 's home and she was not there. He states that they did try to call her but she did not answer.
--- NOTE | 2019-11-03 15:31 | NUR ---
INDIVIDUAL INTERVENTION: SW met with pt to assess for suicidality. Pt states he will not hurt himself while hospitalized but is still contemplating hurting himself once he is discharged. SW discussed positive coping skills with pt and helped pt process his feelings.
[2019-11-03 16:00] VITALS: BP 119/74
[2019-11-03 20:13] VITALS: BP 144/84
[2019-11-03] MEDS: TAMSULOSIN 0.4 MG CAP.SR.24H PO SCH (21:12)
[2019-11-03] MEDS: DONEPEZIL 5 MG TABLET PO SCH (21:12)
[2019-11-03] MEDS: ATORVASTATIN 40 MG TABLET PO SCH (21:13)
[2019-11-03] MEDS: TEMAZEPAM 7.5 MG CAPSULE PO PRN (21:14)
--- NOTE | 2019-11-03 21:14 | NUR ---
GPS RN NOTES: INSOMNIA PATIENT COMPLAINED OF NOT BEING ABLE TO SLEEP. PATIENT THEN REQUESTED OF HIS SLEEPING MEDICATION- RESTORIL 7.5 MG GIVEN ORALLY PRN ORDER. WILL MONITOR EFFICACY OF MEDICATION TO THE PATIENT.
[2019-11-03] MEDS: *INSULIN REGULAR(HUMULIN R)HUM 100 UNIT/ML VIAL SQ PRN (21:19)
[2019-11-04] MEDS: hydrALAZINE HCL 25 MG TABLET PO SCH ×3 (05:00→21:18)
[2019-11-04 05:48] VITALS: BP 129/70
--- NOTE | 2019-11-04 05:51 | NUR ---
GPS RN NOTES: PATIENT'S SCHEDULED HYDRALAZINE NOT GIVEN- BP 123/70 HR OF 55. WILL CONTINUE TO MONITOR PATIENT.
[2019-11-04 06:44] LABS: BASOPHILS % (AUTO) 0.4 % (0.0-2.0); EOSINOPHILS % (AUTO) 2.8 % (0.0-6.0); HEMATOCRIT 38 % (39-51); HEMOGLOBIN 12.6 g/dL (13.5-17.5); LYMPHOCYTES # (AUTO) 1.5 /CMM (0.8-4.8); LYMPHOCYTES % (AUTO) 22.3 % (20.0-44.0); MEAN CORPUSCULAR HGB CONC 34 g/dl (31.0-36.0); MEAN CORPUSCULAR VOLUME 90 fL (80-96); MONOCYTES # (AUTO) 0.6 /CMM (0.1-1.30); MONOCYTES % (AUTO) 8.4 % (2.0-12.0); NEUTROPHILS # (AUTO) 4.4 /CMM (1.8-8.9); NEUTROPHILS % (AUTO) 66.1 % (43.0-81.0); PLATELET COUNT (AUTO) 173 /CMM (150-450); RED BLOOD CELL COUNT(AUTO) 4.19 MIL/uL (4.5-6.0); WHITE BLOOD COUNT (AUTO) 6.7 K/uL (4.3-11.0)
[2019-11-04 07:15] LABS: ALBUMIN 2.8 g/dL (3.4-5.0); BILIRUBIN,TOTAL 0.3 mg/dL (0.2-1.0); CALCIUM, SERUM 8.3 mg/dL (8.5-10.1); CREATININE 1.2 mg/dL (0.6-1.3); POTASSIUM 3.3 mmol/L (3.5-5.1); TOTAL PROTEIN, SERUM 5.5 g/dL (6.4-8.2)
[2019-11-04] MEDS: BLOOD SUGAR DIAGNOSTIC 1 EACH STRIP VI SCH ×4 (07:36→21:19)
[2019-11-04 08:00] VITALS: BP 140/73
[2019-11-04] MEDS: DIVALPROEX SODIUM 250 MG TABLET.DR PO SCH ×3 (08:23→13:00)
[2019-11-04] MEDS: ARIPIPRAZOLE 2 MG TABLET PO SCH ×3 (08:23→16:07)
[2019-11-04] MEDS: CHOLECALCIFEROL 1,000 UNIT TABLET (VIT D3) PO SCH (08:23)
[2019-11-04] MEDS: PANTOPRAZOLE 40 MG TABLET.DR PO SCH (08:24)
[2019-11-04] MEDS: ATENOLOL 50 MG TABLET PO SCH ×2 (08:24→16:06)
[2019-11-04] MEDS: ASPIRIN EC 81 MG TABLET.DR PO SCH (08:24)
[2019-11-04] MEDS: DUTASTERIDE (0.5 MG) 0.5 MG CAPSULE PO SCH (08:24)
[2019-11-04] MEDS: ESCITALOPRAM OXALATE (10 MG) 10 MG TABLET PO SCH ×2 (08:25→12:15)
[2019-11-04] MEDS: NIFEdipine XL (30MG) 30 MG TAB PO SCH (08:25)
[2019-11-04] MEDS: LINAGLIPTIN 5 MG TABLET PO SCH (08:25)
[2019-11-04] MEDS: TOLTERODINE 2 MG CAP.SR PO SCH (08:25)
[2019-11-04] MEDS ORDERED: POTASSIUM CHLORIDE 20 MEQ TAB.PRT.SR PO SCH (09:30)
[2019-11-04] MEDS: *INSULIN REGULAR(HUMULIN R)HUM 100 UNIT/ML VIAL SQ PRN (11:23)
--- NOTE | 2019-11-04 15:01 | NUR ---
FAMILY CONTACT: SW contacted pts son Nathan ([phone]) and left a voicemail informing him of pts current discharge plan. SW stated that pt will be discharged to a SNF once he is stable and no longer verbalizing suicidal ideation.
--- NOTE | 2019-11-04 15:20 | NUR ---
INDIVIDUAL INTERVENTION: SW met with pt to assess for suicidality. Pt is irritable upon approach and stated he just wanted to . Pt states, "I just can't handle this anymore." SW processed pts feelings and attempted to provide alternative coping skills to pt.
[2019-11-04 16:00] VITALS: BP 153/74
[2019-11-04] MEDS: DIVALPROEX SODIUM 500 MG TABLET.DR PO SCH (16:10)
[2019-11-04] MEDS: INSULIN REGULAR, HUMAN 100 UNIT/ML 3 ML VIAL SQ PRN (17:14)
[2019-11-04 20:16] VITALS: BP 139/70
[2019-11-04] MEDS: DONEPEZIL 5 MG TABLET PO SCH (21:17)
[2019-11-04] MEDS: TAMSULOSIN 0.4 MG CAP.SR.24H PO SCH (21:17)
[2019-11-04] MEDS: ATORVASTATIN 40 MG TABLET PO SCH (21:17)
[2019-11-04] MEDS: TEMAZEPAM 7.5 MG CAPSULE PO PRN (21:50)
--- NOTE | 2019-11-04 21:50 | NUR ---
GPS RN NOTE: INSOMNIA PATIENT C/O UNABLE TO SLEEP. ADMINISTERED RESTORIL 7.5 MG 1 CAP PO GIVEN. WILL CONTINUE TO MONITOR FOR EFFECTIVENESS.
--- NOTE | 2019-11-05 00:19 | NUR ---
GPS-RN NOTE: ANXIETY PATIENT C/O FEELING ANXIOUS. ADMINISTERED ATIVAN 0.5MG PO ORDERED. WILL CONTINUE TO MONITOR FOR PT'S SAFETY.
[2019-11-05] MEDS: hydrALAZINE HCL 25 MG TABLET PO SCH ×3 (05:38→21:35)
[2019-11-05 07:01] LABS: CALCIUM, SERUM 8.4 mg/dL (8.5-10.1); POTASSIUM 3.4 mmol/L (3.5-5.1)
[2019-11-05 08:00] VITALS: BP 154/82
[2019-11-05] MEDS: ARIPIPRAZOLE 2 MG TABLET PO SCH ×3 (09:41→18:03)
[2019-11-05] MEDS: CHOLECALCIFEROL 1,000 UNIT TABLET (VIT D3) PO SCH (09:41)
[2019-11-05] MEDS: NIFEdipine XL (30MG) 30 MG TAB PO SCH (09:42)
[2019-11-05] MEDS: DUTASTERIDE (0.5 MG) 0.5 MG CAPSULE PO SCH (09:42)
[2019-11-05] MEDS: ASPIRIN EC 81 MG TABLET.DR PO SCH (09:42)
[2019-11-05] MEDS: PANTOPRAZOLE 40 MG TABLET.DR PO SCH (09:42)
[2019-11-05] MEDS: ATENOLOL 50 MG TABLET PO SCH ×2 (09:43→18:03)
[2019-11-05] MEDS: LINAGLIPTIN 5 MG TABLET PO SCH (09:43)
[2019-11-05] MEDS: DIVALPROEX SODIUM 250 MG TABLET.DR PO SCH ×2 (09:43→13:43)
[2019-11-05] MEDS: TOLTERODINE 2 MG CAP.SR PO SCH (09:44)
[2019-11-05] MEDS: ESCITALOPRAM OXALATE (10 MG) 10 MG TABLET PO SCH (09:44)
[2019-11-05] MEDS: BLOOD SUGAR DIAGNOSTIC 1 EACH STRIP VI SCH ×4 (09:45→21:32)
[2019-11-05] MEDS: INSULIN REGULAR, HUMAN 100 UNIT/ML 3 ML VIAL SQ PRN (13:40)
[2019-11-05 16:00] VITALS: BP 111/53
[2019-11-05] MEDS: DIVALPROEX SODIUM 500 MG TABLET.DR PO SCH (18:03)
[2019-11-05] MEDS: *INSULIN REGULAR(HUMULIN R)HUM 100 UNIT/ML VIAL SQ PRN ×2 (18:08→22:14)
--- NOTE | 2019-11-05 19:10 | NUR ---
STABLE,NO COMPLAINTS,EARLIER TODAY BP A LITTLE ON THE LOW SIDE.MONITORING CLOSELY.REQUESTING INFO ON DIABETIC PILLS VS INSULIN.MEDICAL PRINT OUT GIVEN.
[2019-11-05 20:16] VITALS: BP 144/78
[2019-11-05] MEDS: DONEPEZIL 5 MG TABLET PO SCH (21:26)
[2019-11-05] MEDS: TAMSULOSIN 0.4 MG CAP.SR.24H PO SCH (21:26)
[2019-11-05] MEDS: ATORVASTATIN 40 MG TABLET PO SCH (21:26)
[2019-11-05] MEDS: TEMAZEPAM 7.5 MG CAPSULE PO PRN (22:22)
--- NOTE | 2019-11-05 22:23 | NUR ---
GPS RN NOTE: INSOMNIA PATIENT VERBALIZED THAT HE IS UNABLE TO SLEEP & REQUESTED TO TAKE SLEEPING MEDICINE. PRN RESTORIL 7.5 MG 1 CAP PO GIVEN. WILL MONITOR FOR EFFECTIVENESS.
[2019-11-06] MEDS: hydrALAZINE HCL 25 MG TABLET PO SCH ×3 (05:00→21:07)
--- NOTE | 2019-11-06 05:52 | NUR ---
GPS RN NOTE PATIENT'S BP IS 118/63, 58, SCHEDULED HYDRALAZINE WAS HELD TO PREVENT HYPOTENSION. WILL ENDORSE TO AM RN & WILL CONTINUE TO MONITOR.
[2019-11-06] MEDS: PANTOPRAZOLE 40 MG TABLET.DR PO SCH (07:30)
[2019-11-06] MEDS: BLOOD SUGAR DIAGNOSTIC 1 EACH STRIP VI SCH ×4 (07:30→21:57)
[2019-11-06 08:00] VITALS: BP 134/69
[2019-11-06] MEDS: ESCITALOPRAM OXALATE (10 MG) 10 MG TABLET PO SCH (08:00)
[2019-11-06] MEDS: DIVALPROEX SODIUM 250 MG TABLET.DR PO SCH ×2 (08:00→13:19)
[2019-11-06] MEDS: CHOLECALCIFEROL 1,000 UNIT TABLET (VIT D3) PO SCH (09:07)
[2019-11-06] MEDS: DUTASTERIDE (0.5 MG) 0.5 MG CAPSULE PO SCH (09:08)
[2019-11-06] MEDS: TOLTERODINE 2 MG CAP.SR PO SCH (09:08)
[2019-11-06] MEDS: ASPIRIN EC 81 MG TABLET.DR PO SCH (09:08)
[2019-11-06] MEDS: NIFEdipine XL (30MG) 30 MG TAB PO SCH (09:08)
[2019-11-06] MEDS: LINAGLIPTIN 5 MG TABLET PO SCH (09:08)
[2019-11-06] MEDS: ARIPIPRAZOLE 2 MG TABLET PO SCH ×3 (09:09→17:38)
[2019-11-06] MEDS: ATENOLOL 50 MG TABLET PO SCH ×2 (09:09→17:38)
[2019-11-06] MEDS: INSULIN REGULAR, HUMAN 100 UNIT/ML 3 ML VIAL SQ PRN ×2 (09:11→17:48)
[2019-11-06] MEDS: *INSULIN REGULAR(HUMULIN R)HUM 100 UNIT/ML VIAL SQ PRN ×2 (13:04→21:57)
[2019-11-06 16:00] VITALS: BP_SYST 136; BP_SYST 139; BP_DIAS 75; BP_DIAS 76
[2019-11-06] MEDS: DIVALPROEX SODIUM 500 MG TABLET.DR PO SCH (17:38)
[2019-11-06 20:09] VITALS: BP 138/75
[2019-11-06] MEDS: ATORVASTATIN 40 MG TABLET PO SCH (21:33)
[2019-11-06] MEDS: DONEPEZIL 5 MG TABLET PO SCH (21:33)
[2019-11-06] MEDS: TAMSULOSIN 0.4 MG CAP.SR.24H PO SCH (21:33)
[2019-11-06] MEDS: TEMAZEPAM 7.5 MG CAPSULE PO PRN (22:41)
--- NOTE | 2019-11-06 22:42 | NUR ---
GPS RN NOTE: INSOMNIA PATIENT STATED THAT HE IS NOT ABLE TO SLEEP & REQUESTED TO TAKE SLEEPING MEDICINE. PRN RESTORIL 7.5 MG 1 CAP PO GIVEN.
[2019-11-07] MEDS: hydrALAZINE HCL 25 MG TABLET PO SCH ×3 (05:00→20:03)
--- NOTE | 2019-11-07 05:17 | NUR ---
GPS RN NOTE: HELD HYDRALAZINE 25 MG, BP 119/67, 59. PATIENT HAD BP AT LOW SIDE FEW DAYS AGO & IS ALSO SCHEDULED FOR ANOTHER ANTIHYPERTENSIVES AT 0900. WILL MONITOR CLOSELY 7 WILL ENDORSE TO AM RN.
[2019-11-07] MEDS: BLOOD SUGAR DIAGNOSTIC 1 EACH STRIP VI SCH ×4 (07:16→21:05)
[2019-11-07] MEDS: INSULIN REGULAR, HUMAN 100 UNIT/ML 3 ML VIAL SQ PRN ×3 (07:28→16:48)
[2019-11-07] MEDS: PANTOPRAZOLE 40 MG TABLET.DR PO SCH (07:45)
[2019-11-07 08:00] VITALS: BP 150/83
[2019-11-07] MEDS: CHOLECALCIFEROL 1,000 UNIT TABLET (VIT D3) PO SCH (08:10)
[2019-11-07] MEDS: DUTASTERIDE (0.5 MG) 0.5 MG CAPSULE PO SCH (08:10)
[2019-11-07] MEDS: ASPIRIN EC 81 MG TABLET.DR PO SCH (08:10)
[2019-11-07] MEDS: LINAGLIPTIN 5 MG TABLET PO SCH (08:10)
[2019-11-07] MEDS: TOLTERODINE 2 MG CAP.SR PO SCH (08:11)
[2019-11-07] MEDS: NIFEdipine XL (30MG) 30 MG TAB PO SCH (08:11)
[2019-11-07] MEDS: DIVALPROEX SODIUM 250 MG TABLET.DR PO SCH ×2 (08:11→12:58)
[2019-11-07] MEDS: ESCITALOPRAM OXALATE (10 MG) 10 MG TABLET PO SCH (08:11)
[2019-11-07] MEDS: ARIPIPRAZOLE 2 MG TABLET PO SCH ×3 (08:12→16:13)
[2019-11-07] MEDS: ATENOLOL 50 MG TABLET PO SCH ×2 (08:12→16:14)
--- NOTE | 2019-11-07 09:00 | NUR ---
RN NOTE- PT ALERT ORIENTED TO PERSON PLACE TIME PURPOSE. DENIES SI HI AH VH MED COMPLIANT PO INTAKE GOOD CALM QUIET
--- NOTE | 2019-11-07 13:44 | NUR ---
Discharge Planning: DARIAN faxed patient's referral packet for review and possible placement at the following facilities: [facility] (fax:[phone]) attention to [facility] (fax [phone]) attention to [facility] (fax [phone]) attention to [facility] Addendum: 11/09/19 at 1009 by EDGAR IZQUIERDO Patient is [facility] to [facility] and will admit upon discharge.
--- NOTE | 2019-11-07 14:00 | NUR ---
ORTHOSTATIC B/P STANDING- 123/68, HR- 65, RR-18, O2 SATS 96% RA SITTING - 142/84, HR-57, RR- 18, 02 SATS 99% RA FORWARDED TO [facility] VELÁSQUEZ
[2019-11-07 16:00] VITALS: BP 123/68
[2019-11-07] MEDS: DIVALPROEX SODIUM 500 MG TABLET.DR PO SCH (16:14)
[2019-11-07] MEDS: METFORMIN 500 MG TABLET PO SCH (16:14)
[2019-11-07 20:01] VITALS: BP 164/90
[2019-11-07 20:07] VITALS: BP 152/77
[2019-11-07] MEDS: TAMSULOSIN 0.4 MG CAP.SR.24H PO SCH (21:03)
[2019-11-07] MEDS: DONEPEZIL 5 MG TABLET PO SCH (21:04)
[2019-11-07] MEDS: ATORVASTATIN 40 MG TABLET PO SCH (21:04)
[2019-11-07] MEDS: *INSULIN REGULAR(HUMULIN R)HUM 100 UNIT/ML VIAL SQ PRN (21:04)
[2019-11-07 21:50] VITALS: BP 149/78
[2019-11-07] MEDS: TEMAZEPAM 7.5 MG CAPSULE PO PRN (21:54)
--- NOTE | 2019-11-07 21:55 | NUR ---
GPS RN NOTES: INSOMNIA PT REQUESTED SLEEPING PILL. PT UNABLE TO SLEEP. VITALS CHECKED WNL. OFFERED RESTORIL 7.5 MG PO PRN ORDERED. PT AGREED AND TOLERATED MEDICATION WELL. CONTINUE TO MONITOR
[2019-11-08] MEDS: hydrALAZINE HCL 25 MG TABLET PO SCH ×3 (04:37→20:16)
--- NOTE | 2019-11-08 04:39 | NUR ---
GPS RN NOTES: HELD BP MEDICATION HELD HYDRALAZINE 25 MG PO THAT IS DUE AT 0500. PT BLOOD PRESSURE 101/69 AND HEART RATE 58 BPM. NO RESP DISTRESS. BREATHING EVEN AND UNLABORED. NO PAIN AT THIS TIME. NO SOB. CONTINUE TO MONITOR.
--- NOTE | 2019-11-08 06:26 | NUR ---
GPS RN NOTES: REFUSED INSULIN COVERAGE PT REFUSED 2 UNITS INSULIN COVERAGE. PT BLOOD SUGAR 131. EXPLAIN RISKS AND BENEFITS. PT STILL REFUSED X3. CONTINUE TO MONITOR.
[2019-11-08] MEDS: BLOOD SUGAR DIAGNOSTIC 1 EACH STRIP VI SCH ×4 (06:31→21:01)
[2019-11-08] MEDS: INSULIN REGULAR, HUMAN 100 UNIT/ML 3 ML VIAL SQ PRN (06:31)
[2019-11-08] MEDS: PANTOPRAZOLE 40 MG TABLET.DR PO SCH ×2 (07:42→08:03)
[2019-11-08 08:00] VITALS: BP 143/75
[2019-11-08] MEDS: ASPIRIN EC 81 MG TABLET.DR PO SCH (08:03)
[2019-11-08] MEDS: CHOLECALCIFEROL 1,000 UNIT TABLET (VIT D3) PO SCH (08:03)
[2019-11-08] MEDS: METFORMIN 500 MG TABLET PO SCH ×2 (08:03→16:19)
[2019-11-08] MEDS: LINAGLIPTIN 5 MG TABLET PO SCH (08:03)
[2019-11-08] MEDS: DIVALPROEX SODIUM 250 MG TABLET.DR PO SCH ×2 (08:03→12:18)
[2019-11-08] MEDS: ESCITALOPRAM OXALATE (10 MG) 10 MG TABLET PO SCH (08:03)
[2019-11-08] MEDS: NIFEdipine XL (30MG) 30 MG TAB PO SCH (08:04)
[2019-11-08] MEDS: DUTASTERIDE (0.5 MG) 0.5 MG CAPSULE PO SCH (08:04)
[2019-11-08] MEDS: ARIPIPRAZOLE 2 MG TABLET PO SCH ×3 (08:04→16:19)
[2019-11-08] MEDS: ATENOLOL 50 MG TABLET PO SCH ×2 (08:05→16:19)
--- NOTE | 2019-11-08 09:00 | NUR ---
RN NOTE- PT IN BED READING ALERT ORIENTED TO PERSON PLACE TIME AND PURPOSE NEEDS ATTENDED MED COMPLIANT DENIES SI [facility]
[2019-11-08] MEDS: TOLTERODINE 2 MG CAP.SR PO SCH (09:34)
--- NOTE | 2019-11-08 12:00 | NUR ---
RN NOTE- ACCU-CHECK 155. PT REFUSED INSULIN SLIDING SCALE
--- NOTE | 2019-11-08 13:32 | NUR ---
RN NOTE- ORTHOSTATIC SITTING- B/P- 151/81, HR- 66 STANDING- B/P- 146/75, HR- 71
--- NOTE | 2019-11-08 15:06 | NUR ---
FAMILY CONTACT: SW contacted pts son Nathan ([phone]) regarding discharge planning and treatment. Nathan is aware of the patient's acceptance at [facility] and is agreeable with discharge plan to [facility] end of this week.
[2019-11-08 16:00] VITALS: BP 146/75
[2019-11-08] MEDS: DIVALPROEX SODIUM 500 MG TABLET.DR PO SCH (16:18)
--- NOTE | 2019-11-08 16:42 | NUR ---
RN NOTE- ACCU-CHECK 135. PT REFUSES SLIDING SCALE INSULIN
[2019-11-08] MEDS: *INSULIN REGULAR(HUMULIN R)HUM 100 UNIT/ML VIAL SQ PRN (21:02)
[2019-11-08 21:04] VITALS: BP 158/78
[2019-11-08] MEDS: DONEPEZIL 5 MG TABLET PO SCH (21:06)
[2019-11-08] MEDS: TAMSULOSIN 0.4 MG CAP.SR.24H PO SCH (21:06)
[2019-11-08] MEDS: ATORVASTATIN 40 MG TABLET PO SCH (21:06)
[2019-11-08 22:05] VITALS: BP 146/77
[2019-11-08] MEDS: TEMAZEPAM 7.5 MG CAPSULE PO PRN (22:06)
[2019-11-09] MEDS: hydrALAZINE HCL 25 MG TABLET PO SCH ×3 (05:00→20:17)
--- NOTE | 2019-11-09 05:15 | NUR ---
GPS RN NOTES: HELD BP MEDICATION HELD 0500 HYDRALAZINE 25 MG PO DUE TO BLOOD PRESSURE 110/60 AND HEART RATE at 57. NO RESP DISTRESS. BREATHING EVEN AND UNLABORED. NO PAIN AT THIS TIME. NO SOB. CONTINUE TO MONITOR.
[2019-11-09] MEDS: BLOOD SUGAR DIAGNOSTIC 1 EACH STRIP VI SCH ×4 (07:41→21:12)
[2019-11-09 08:00] VITALS: BP 130/74
[2019-11-09] MEDS: TOLTERODINE 2 MG CAP.SR PO SCH (08:31)
[2019-11-09] MEDS: ASPIRIN EC 81 MG TABLET.DR PO SCH (08:31)
[2019-11-09] MEDS: DIVALPROEX SODIUM 250 MG TABLET.DR PO SCH ×2 (08:31→12:09)
[2019-11-09] MEDS: DUTASTERIDE (0.5 MG) 0.5 MG CAPSULE PO SCH (08:31)
[2019-11-09] MEDS: METFORMIN 500 MG TABLET PO SCH ×2 (08:32→16:25)
[2019-11-09] MEDS: ATENOLOL 50 MG TABLET PO SCH ×2 (08:32→16:25)
[2019-11-09] MEDS: ARIPIPRAZOLE 2 MG TABLET PO SCH ×4 (08:32→16:24)
[2019-11-09] MEDS: NIFEdipine XL (30MG) 30 MG TAB PO SCH (08:32)
[2019-11-09] MEDS: ESCITALOPRAM OXALATE (10 MG) 10 MG TABLET PO SCH (08:36)
[2019-11-09] MEDS: LINAGLIPTIN 5 MG TABLET PO SCH (08:38)
[2019-11-09] MEDS: CHOLECALCIFEROL 1,000 UNIT TABLET (VIT D3) PO SCH (09:21)
--- NOTE | 2019-11-09 10:09 | NUR ---
FAMILY CONTACT: SW received a call from pt's son Nathan ([phone]) who was expressing his concerns about the patient's sudden behaviors that spiraled into this hospitalization. This scientific writer provided Nathan with emphatic understanding and some guidance into having a family member with a mental health disorder.
--- NOTE | 2019-11-09 10:56 | NUR ---
DARIAN Brief Individual Counseling: SW met with patient to provide brief individual counseling. Patient presents with withdrawn mood and congruent affect. SW prompted patient to share his feelings and assess for level or suicidality. Patient stated he is not feeling suicidal. Patient was in bed and did not want to engage in a conversation at this time.
[2019-11-09] MEDS: INSULIN REGULAR, HUMAN 100 UNIT/ML 3 ML VIAL SQ PRN (11:26)
[2019-11-09 16:00] VITALS: BP 126/75
[2019-11-09] MEDS: DIVALPROEX SODIUM 500 MG TABLET.DR PO SCH (16:24)
[2019-11-09 20:47] VITALS: BP 131/74
[2019-11-09] MEDS: TAMSULOSIN 0.4 MG CAP.SR.24H PO SCH (21:11)
[2019-11-09] MEDS: DONEPEZIL 5 MG TABLET PO SCH (21:11)
[2019-11-09] MEDS: ATORVASTATIN 40 MG TABLET PO SCH (21:11)
[2019-11-09] MEDS: *INSULIN REGULAR(HUMULIN R)HUM 100 UNIT/ML VIAL SQ PRN (21:15)
--- NOTE | 2019-11-09 21:32 | NUR ---
GPS RN NOTES: REFUSED INSULIN COVERAGE PT REFUSED 2 UNITS INSULIN COVERAGE. PT BLOOD SUGAR 138. EXPLAIN RISKS AND BENEFITS. PT STILL REFUSED X3. PT STATED, " I DON'T WANT MY BLOOD SUGAR TO GET LOW AT NIGHT. MY SUGAR IS NOT THAT BAD. I DON'T NEED IT RIGHT NOW. THANKS." CONTINUE TO MONITOR.
[2019-11-09 22:02] VITALS: BP 126/76
[2019-11-09] MEDS: TEMAZEPAM 7.5 MG CAPSULE PO PRN (22:06)
[2019-11-10] MEDS: hydrALAZINE HCL 25 MG TABLET PO SCH ×3 (05:00→21:07)
--- NOTE | 2019-11-10 05:22 | NUR ---
GPS RN NOTES: HELD BP MEDICATION HELD 0500 HYDRALAZINE 25 MG PO DUE TO BLOOD PRESSURE 101/72 AND HEART RATE at 55. NO RESP DISTRESS. BREATHING EVEN AND UNLABORED. NO PAIN AT THIS TIME. NO SOB. CONTINUE TO MONITOR.
[2019-11-10 08:00] VITALS: BP 118/74
[2019-11-10] MEDS: CHOLECALCIFEROL 1,000 UNIT TABLET (VIT D3) PO SCH (08:01)
[2019-11-10] MEDS: DIVALPROEX SODIUM 250 MG TABLET.DR PO SCH ×2 (08:02→12:38)
[2019-11-10] MEDS: METFORMIN 500 MG TABLET PO SCH ×2 (08:02→18:24)
[2019-11-10] MEDS: PANTOPRAZOLE 40 MG TABLET.DR PO SCH (08:02)
[2019-11-10] MEDS: DUTASTERIDE (0.5 MG) 0.5 MG CAPSULE PO SCH (08:02)
[2019-11-10] MEDS: ASPIRIN EC 81 MG TABLET.DR PO SCH (08:02)
[2019-11-10] MEDS: ARIPIPRAZOLE 2 MG TABLET PO SCH ×3 (08:02→16:48)
[2019-11-10] MEDS: LINAGLIPTIN 5 MG TABLET PO SCH (08:03)
[2019-11-10] MEDS: NIFEdipine XL (30MG) 30 MG TAB PO SCH (08:03)
[2019-11-10] MEDS: TOLTERODINE 2 MG CAP.SR PO SCH (08:03)
[2019-11-10] MEDS: ESCITALOPRAM OXALATE (10 MG) 10 MG TABLET PO SCH (08:03)
[2019-11-10] MEDS: ATENOLOL 50 MG TABLET PO SCH ×2 (08:03→16:50)
[2019-11-10] MEDS: BLOOD SUGAR DIAGNOSTIC 1 EACH STRIP VI SCH ×4 (08:04→22:02)
--- NOTE | 2019-11-10 09:11 | NUR ---
Discharge Note: Patient will be discharged to [facility] [address], [place] [address] ([phone]). Patient will be provided Ambulance transportation at 12PM. Spoke with Linda, Admin Coordinator at the facility who states they are ready to accept the patient today. Patient is aware and agreeable with discharge plans. Patient is alert and oriented x3, is unable to plan for self-care at this time, however, is willing to accept care at [facility]. Patient denies any suicidal or homicidal ideation. Patient will follow-up at the facility with Dr. Braxton Psychiatrist and Dr. Alcocer Blueprint Cutter. Patient presents with calm mood and congruent affect. Patients brother, Nathan ([phone]) and , Marilee ([phone]) are both aware and agreeable with discharge plan. Addendum: 11/10/19 at 1056 by EDGAR IZQUIERDO Discharge today is cancelled and will postpone to tomorrow.
--- NOTE | 2019-11-10 11:20 | NUR ---
Family Contact: SW spoke with patient's , Marilee ([phone]) regarding the discharge being postponed to tomorrow.
--- NOTE | 2019-11-10 11:30 | NUR ---
RN-CO: PER DR SALOMON PT WILL BE DISCHARGE TOMORROW 11/11/19 , THURSDAY.
[2019-11-10] MEDS: INSULIN REGULAR, HUMAN 100 UNIT/ML 3 ML VIAL SQ PRN (12:41)
[2019-11-10 16:00] VITALS: BP 135/83
[2019-11-10] MEDS: DIVALPROEX SODIUM 500 MG TABLET.DR PO SCH (16:48)
[2019-11-10 20:12] VITALS: BP 139/82
[2019-11-10 20:50] VITALS: BP 139/82
[2019-11-10] MEDS: DONEPEZIL 5 MG TABLET PO SCH (21:17)
[2019-11-10] MEDS: TAMSULOSIN 0.4 MG CAP.SR.24H PO SCH (21:17)
[2019-11-10] MEDS: ATORVASTATIN 40 MG TABLET PO SCH (21:17)
--- NOTE | 2019-11-10 22:03 | NUR ---
GPS RN NOTE PATIENT'S BLOOD SUGAR IS 100 MG/DL, NO INSULIN GIVEN. SNACK, JELLO, ORANGE JUICE WAS GIVEN TO THE PATIENT & TOLERATED WELL. WILL CONTINUE TO MONITOR FOR ANY CHANGES.
[2019-11-10] MEDS: TEMAZEPAM 7.5 MG CAPSULE PO PRN (22:05)
--- NOTE | 2019-11-10 22:06 | NUR ---
GPS RN NOTE: INSOMNIA PATIENT VERBALIZED THAT HE IS UNABLE TO SLEEP & REQUESTED TO GET SLEEPING MEDICINE, PRN RESTORIL 7.5 MG 1 CAP PO GIVEN. WILL CONTINUE TO MONITOR FOR EFFECTIVENESS.
[2019-11-11] MEDS: hydrALAZINE HCL 25 MG TABLET PO SCH ×2 (05:00→13:00)
--- NOTE | 2019-11-11 05:11 | NUR ---
GPS RN NOTES: HELD BP MEDICATION HELD 0500 HYDRALAZINE 25 MG TO PREVENT HYPOTENSION. BLOOD PRESSURE 112/59 AND HEART RATE at 66. PATIENT HAD LOW BP EPISODES IN THE PAST. WILL CONTINUE TO MONITOR.
--- NOTE | 2019-11-11 07:16 | NUR ---
GPS RN NOTE: UPSET STOMACH PATIENT VERBALIZED THAT HE HAS UPSET STOMACH, PRN MAALOX 30 ML PO GIVEN. WILL CONTINUE TO MONITOR & WILL ENDORSE TO AM RN FOR CONTINUITY OF CARE.
[2019-11-11] MEDS: BLOOD SUGAR DIAGNOSTIC 1 EACH STRIP VI SCH ×2 (07:30→12:42)
[2019-11-11 08:00] VITALS: BP 124/67
[2019-11-11] MEDS: ESCITALOPRAM OXALATE (10 MG) 10 MG TABLET PO SCH (08:19)
[2019-11-11] MEDS: LINAGLIPTIN 5 MG TABLET PO SCH (08:19)
[2019-11-11] MEDS: METFORMIN 500 MG TABLET PO SCH (08:19)
[2019-11-11] MEDS: CHOLECALCIFEROL 1,000 UNIT TABLET (VIT D3) PO SCH (08:19)
[2019-11-11] MEDS: ASPIRIN EC 81 MG TABLET.DR PO SCH (08:19)
[2019-11-11] MEDS: ARIPIPRAZOLE 2 MG TABLET PO SCH ×2 (08:20→12:50)
[2019-11-11] MEDS: DIVALPROEX SODIUM 250 MG TABLET.DR PO SCH ×2 (08:20→12:50)
[2019-11-11] MEDS: TOLTERODINE 2 MG CAP.SR PO SCH (08:20)
[2019-11-11] MEDS: PANTOPRAZOLE 40 MG TABLET.DR PO SCH (08:20)
[2019-11-11] MEDS: ATENOLOL 50 MG TABLET PO SCH (08:20)
[2019-11-11] MEDS: DUTASTERIDE (0.5 MG) 0.5 MG CAPSULE PO SCH (08:20)
[2019-11-11] MEDS: NIFEdipine XL (30MG) 30 MG TAB PO SCH (08:21)
--- NOTE | 2019-11-11 08:44 | NUR ---
Discharge Note: Patient will be discharged to [facility] [address], [place] [address] ([phone]). Patient will be provided Ambulance transportation at 1PM. Spoke with Linda, Admin Coordinator at the facility who states they are ready to accept the patient today. Patient is aware and agreeable with discharge plans. Patient is alert and oriented x3, is unable to plan for self-care at this time, however, is willing to accept care at [facility]. Patient denies any suicidal or homicidal ideation. Patient will follow-up at the facility with Dr. Braxton Psychiatrist [address], [place] [address] ([phone]) and Dr. Alcocer Cattle Dealer [address], [place] [address] ([phone]). . Patient presents with calm mood and congruent affect. Patients brother, Nathan ([phone]) and , Marilee ([phone]) are both aware and agreeable with discharge plan.
--- NOTE | 2019-11-11 09:31 | NUR ---
GPS/RN ACCUCHECK 147 PERFORMED AT 0931 PER PT 'S REQUEST. PT REFUSED ACCUCHECK AT 0800 PREVIOUSLY. NO INSULIN COVERAGE GIVEN PT REFUSED TO EAT BREAKFAST.
--- NOTE | 2019-11-11 10:02 | NUR ---
Family Contact: SW spoke with patient's , Marilee ([phone]) again regarding discharge today.
--- NOTE | 2019-11-11 10:11 | NUR ---
DR. MCGHEE GAVE AN ORDER TO D/C HOLD AND D/C TO [facility] AND TO FOLLOW UP WITH PSYCH AND MEDICAL DOCTORS AND TO CONTINUE SAME MEDS INCLUDING PRN. Addendum: 11/11/19 at [address] RAEGAN VU RN DR[address] THOMAS MADE AWARE OF THE DISCHARGE AND RECONCILED THE MEDS.
--- NOTE | 2019-11-11 12:45 | NUR ---
GPS/RN PT REFUSED INSULIN COVERAGE. OFFERED X3
[2019-11-11 13:00] VITALS: BP 105/64
[2019-11-11] MEDS ORDERED: LOPERAMIDE HCL UDC(2 MG/10 ML) 2 MG/10 ML UDC PO ONE (13:00)
--- NOTE | 2019-11-11 14:25 | NUR ---
GPS/RN PT DISCHARGED TO [facility]. REPORT GIVEN TO ACCEPTING NURSE. NO SI OR HI AT THE TIME OF DISCHARGE REPORTED. PROPERTY RETURNED. EXIT CARE AND MEDS LIST GIVEN AND UNDERSTOOD. VSS. NO ACUTE DISTRESS NOTED. PT AMBULATORY
== END 2019-11-11 14:25 | DRG 885 ==
LOC: ER 18:58 → GPS 20:43
PROVIDERS: ADMIT Psychiatry & Neurology Psychosomatic Medicine; ATTEND Student in an Organized Health Care Education/Training Program
DX: F31.81 Bipolar II disorder (principal); N17.0 Acute kidney failure with tubular necrosis; E11.65 Type 2 diabetes mellitus with hyperglycemia; E44.0 Moderate protein-calorie malnutrition; R45.851 Suicidal ideations; F29 Unspecified psychosis not due to a substance or known physiological condition; I10 Essential (primary) hypertension; N40.0 Benign prostatic hyperplasia without lower urinary tract symptoms; E87.6 Hypokalemia; F41.9 Anxiety disorder, unspecified; Z87.442 Personal history of urinary calculi; E88.09 Other disorders of plasma-protein metabolism, not elsewhere classified; Z68.25 Body mass index [BMI] 25.0-25.9, adult; Z79.84 Long term (current) use of oral hypoglycemic drugs; F03.90 Unspecified dementia, unspecified severity, without behavioral disturbance, psychotic disturbance, mood disturbance, and anxiety; F39 Unspecified mood [affective] disorder
CPT/HCPCS: 36415; 70551-TC; 80048-TC; 80053-TC; 80061-TC; 80164-TC; 81000-TC; 82550-TC; 82570-TC; 82962-TC; 83735-TC; 83970; 84100-TC; 84155; 84155-TC; 84165; 84300-TC; 84443-TC; 85025-TC; 87081-TC; 97116-TC; 97530-TC; J1815; J7030

== ENCOUNTER 2019-11-17 23:15 | Inpatient (IN) | payer MEDICARE ==
[~2019-11-17] VITALS: Ht 181.6 cm; Wt 87.1 kg
[~2019-11-17 23:15] MED LIST: ASPI-1420 PO; ATEN50TA PO; CHLO25TA11 PO; CHOL400T11 PO; DOCO1CAP4 PO; DUTA0.5C PO; FESO4TAB PO; HYDR-4076 PO; IPRA21SP BNOSTRILS; LOSA100T3 PO; METF-442 PO; NIFE30TA2 PO; PANT40TA2 PO; POTA20TA10 PO; ROSU20TA2 PO; TAMS-12 PO; UBID10CA9 PO
--- NOTE | 2019-11-17 23:19 | NUR ---
[facility] - [facility] [phone]
--- NOTE | 2019-11-17 23:29 | NUR ---
PT AAOX4. [facility]. PER EMT, MULTIPLE ATTEMPTS BY PATIENT TO LEAVE FACILITY. NO ACUTE DISTRESS. PT IN BED 11 ON MONITOR AND PULSE OX. VSS.
[2019-11-17] MEDS ORDERED: hydrALAZINE HCL 10 MG TABLET PO ONE (23:30)
[2019-11-17] MEDS ORDERED: ATENOLOL 50 MG TABLET PO ONE (23:30)
--- NOTE | 2019-11-17 23:37 | NUR ---
FOOD EDITOR AT BEDSIDE
[2019-11-17 23:38] LABS: APPEARANCE,URINE Clear (CLEAR); BILIRUBIN,URINE Negative (NEGATIVE); BLOOD, URINE Negative Ery/uL (NEGATIVE); COLOR,URINE Yellow (YELLOW); KETONES,URINE 15 (NEGATIVE); LEUKOCYTE ESTERASE ,URINE Negative (NEGATIVE); NITRITE, URINE Negative (NEGATIVE); PH,URINE 6.5 (5.0-8.0); PROTEIN,URINE 100 mg/dl (NEGATIVE); UGLUCOSE Negative (NEGATIVE)
[2019-11-17 23:42] LABS: BASOPHILS % (AUTO) 0.2 % (0.0-2.0); EOSINOPHILS % (AUTO) 0.7 % (0.0-6.0); HEMATOCRIT 41 % (39-51); HEMOGLOBIN 13.5 g/dL (13.5-17.5); LYMPHOCYTES % (AUTO) 10.5 % (20.0-44.0); MEAN CORPUSCULAR HGB CONC 33 g/dl (31.0-36.0); MEAN CORPUSCULAR VOLUME 91 fL (80-96); MONOCYTES # (AUTO) 0.5 /CMM (0.1-1.30); MONOCYTES % (AUTO) 5.5 % (2.0-12.0); NEUTROPHILS # (AUTO) 8.2 /CMM (1.8-8.9); NEUTROPHILS % (AUTO) 83.1 % (43.0-81.0); PLATELET COUNT (AUTO) 158 /CMM (150-450); RED BLOOD CELL COUNT(AUTO) 4.45 MIL/uL (4.5-6.0); WHITE BLOOD COUNT (AUTO) 9.9 K/uL (4.3-11.0)
[2019-11-17] MEDS ORDERED: ATENOLOL 50 MG TABLET ONE (23:43)
[2019-11-17 23:48] LABS: BACTERIA,URINE Rare /HPF (None Seen); RBC,URINE NONE SEEN /HPF (0-2); SQUAMOUS EPITHELIAL CELL,UR Few /HPF (None Seen); WBC,URINE NONE SEEN /HPF (0-3)
[2019-11-18] LABS: CARBON DIOXIDE 29 mmol/L (21-32); CHLORIDE 106 mmol/L (98-107); CREATININE 1.3 mg/dL (0.6-1.3); GLUCOSE 127 mg/dL (74-106); POTASSIUM 3.8 mmol/L (3.5-5.1); SODIUM SERUM 146 mmol/L (136-145); UREA NITROGEN, BLOOD 21 mg/dL (7-18)
[2019-11-18 00:05] LABS: ALANINE AMINOTRANSFERASE 25 U/L (12-78); ALBUMIN 3.4 g/dL (3.4-5.0); ALKALINE PHOSPHATASE 65 U/L (46-116); ASPARTATE AMINOTRANSFERASE 17 U/L (15-37); BILIRUBIN,DIRECT 0.1 mg/dL (0.0-0.2); BILIRUBIN,TOTAL 0.3 mg/dL (0.2-1.0); TOTAL PROTEIN, SERUM 6.6 g/dL (6.4-8.2)
[2019-11-18 00:06] LABS: ACETAMINOPHEN < 2 ug/ml (10-30); ALCOHOL, BLOOD < 3 mg/dL (0-0); SALICYLATE 0.8 mg/dL (2.8-20.0)
--- NOTE | 2019-11-18 00:07 | NUR ---
DHARA SENT TO LAB
--- NOTE | 2019-11-18 01:04 | NUR ---
REC'D NEG COVID RESULTS. AWARE
--- NOTE | 2019-11-18 01:59 | NUR ---
REPORT GIVEN TO NESTOR MONAHAN FOR DANIELLE
[2019-11-18] MEDS ORDERED: TEMA15CA5 PO (02:13)
[2019-11-18] MEDS ORDERED: ARIP2TAB3 PO ×2 (02:13)
[2019-11-18] MEDS ORDERED: ATOR40TA PO (02:13)
[2019-11-18] MEDS ORDERED: LINA5TAB PO (02:13)
[2019-11-18] MEDS ORDERED: DIVA500T4 PO (02:13)
[2019-11-18] MEDS ORDERED: LORA-259 PO (02:13)
[2019-11-18] MEDS ORDERED: INSU100V3 SQ (02:13)
[2019-11-18] MEDS ORDERED: ESCI5TAB PO (02:13)
[2019-11-18] MEDS ORDERED: DONE10TA11 PO (02:13)
[2019-11-18] MEDS ORDERED: DIVA250T PO (02:13)
[2019-11-18] MEDS ORDERED: TOLT2CAP PO (02:13)
[2019-11-18] MEDS ORDERED: ZOLPIDEM TARTRATE 5 MG TABLET PO PRN (02:30)
[2019-11-18] MEDS ORDERED: MAGNESIUM HYDROXIDE 30 ML UDC PO PRN (02:30)
[2019-11-18] MEDS ORDERED: MAG HYDROX/AL HYDROX/SIMETH 30 ML UDC PO PRN (02:30)
[2019-11-18] MEDS ORDERED: ACETAMINOPHEN 325 MG TABLET PO PRN (02:30)
[2019-11-18] MEDS ORDERED: BLOOD SUGAR DIAGNOSTIC 1 EACH STRIP IN ONE (02:45)
[2019-11-18 03:42] VITALS: BP 155/78
--- NOTE | 2019-11-18 03:44 | NUR ---
GPS RN NOTE: ADMISSION NOTE PT ARRIVED ON THE UNIT @ 0210, PT IS BEING TRANSFERRED FROM THE ER, [facility], PT IS A 84 Y/O MALE, MEDICAL HX: DM, HTN, HYPERLIPIDEMIA, DEMENTIA, ALZHEIMER, GERD, LING, DYSPHAGIA. PT IS ON A 5150 DUE TO DTS, GD, PER HOLD PT WAS FOUND MAKING SEVERAL ATTEMPTS TO ELOPE FROM FACILITY, PTS SON CALLED THE ER STATING THAT THE PT HAS BEEN ACTING SUICIDAL FOR SEVERAL WEEKS AND HAS TOLD HIM AND THOSE WORKING AT THE FACILITY COUNTLESS OF TIMES. PT IS A/O X3, PT IS CALM, COOPERATIVE, FLAT, BLUNTED AFFECT, CLEAR, PRESSURED, PASSIVE SPEECH. UPON FACE TO FACE ASSESSMENT PT STATED "I KNOW WHY IM HERE FOR MEDICAL EVALUATION, EVERYONE IS SAYING IM TRYING TO KILL MYSELF AND IM SAD IM NOT, I AM FINE AND I CANT IMAGINE DOING THAT TO MYSELF. I HAD THOSE THOUGHTS LAST WEEK NOT NOW, I JUST WANT TO LEAVE SO I CAN GO TO WORK, LAST THING I WANT TO DO IS HURT MYSELF, SILL JUST COMPLY SO I CAN LEAVE FASTER". PT VITAL SIGNS STABLE, BS: 118, REFUSED COVERAGE. PT ALSO STATED "I HAVE BRUISES ON MY ARM BECAUSE THEY GAVE ME INSULIN, I DONT TAKE INSULIN I TAKE METFORMIN", SKIN ASSESSMENT DONE, PICTURES PLACED IN CHART. ALL NEEDS MET AND ANTICIPATED AT THIS TIME, PT WAS ADVISED OF HOLD AND PTS RIGHT BOOKLET GIVEN, PATIENT IS UNDER THE CARE OF PSYCHIATRIC DR. SALOMON AND THE MEDICAL CARE OF DIANE. ENVIRONMENTAL CHECK WAS DONE, BED IN LOCKED AND LOWEST POSITION, BED ALARM ON, WILL CONTINUE TO MONITOR Q15MIN FOR SAFETY AND BEHAVIOR.
--- NOTE | 2019-11-18 05:53 | NUR ---
GPS RN NOTE: MED RECON SOME TO DR. CONTRERAS ABOUT NEW ADMISSION AND MED RECON STATED "PASS IT ON TO THE MORNING SHIFT" WILL CONTINUE TO MONITOR Q15MIN FOR SAFETY AND BEHAVIOR.
[2019-11-18] MEDS ORDERED: GABAPENTIN 300 MG CAPSULE PO SCH (06:00)
--- NOTE | 2019-11-18 07:05 | NUR ---
GPS RN NOTE: SPOKE TO FAMILY SPOKE TO THE FAMILY, FATEMEH, SHE STATED "DO NOT BELIEVE WHAT HE SAYS HE IS VERY SUICIDAL, HE HAS FRIENDS THAT HELP HIS GET OUT OF THE FACILITY HE IS JUST LYING TO YOU GUYS" WILL PASS IS ON TO UPCOMING NURSE AND CONTINUE TO MONITOR.
[2019-11-18] MEDS ORDERED: NA P133E RC (07:55)
[2019-11-18] MEDS ORDERED: BISA10SU11 RC (07:55)
[2019-11-18] MEDS ORDERED: ACET-868 PO (07:55)
[2019-11-18] MEDS ORDERED: DOCU-141 PO (07:55)
[2019-11-18] MEDS ORDERED: MAGN400O6 PO (07:55)
[2019-11-18 08:00] VITALS: BP 167/98
--- NOTE | 2019-11-18 09:00 | NUR ---
RN NOTE- PT IN ROOM INITIATES CONVERSATION [facility] CONTACT ALL NEEDSA ATTENDED PO INTAKE GOOD DENIES SI HI AH VH. STATES "IM NOT A THREAT TO MYSELF OR ANYONE' i FEEL MUCH BETTER."
--- NOTE | 2019-11-18 10:45 | NUR ---
Facility Contact: SW contacted Linda ([phone]), Admissions from [facility], and inquired about whether or not the pt can return to the facility. She stated that she will have to speak with the DON regarding the situation that caused him to be admitted. She stated that she will contact the SW when she has any information.
--- NOTE | 2019-11-18 10:49 | NUR ---
RN NOTE- GRAIN UNLOADER MACHINE SHAFFER NOTIFIED MED RECON NEEDS COMPLETED
--- NOTE | 2019-11-18 11:05 | NUR ---
Family Contact: SW called the pts , Marilee ([phone]), who stated that she does not want the pt to return back home because she does not feel that he is not stable. She stated that he will need placement if he does not to or cannot return to [facility].
--- NOTE | 2019-11-18 11:08 | NUR ---
Initial Discharge Plan: Pt currently resides at [facility] located at [address] [place] [address], [place] [address]; ([phone]). Per pt, he would not like to return to the facility. SW will work with the pt and the MD regarding appropriate discharge planning. SW will form a safe and proper discharge plan.
[2019-11-18] MEDS: DIVALPROEX SODIUM 250 MG TABLET.DR PO SCH ×3 (13:19→22:20)
[2019-11-18] MEDS: ARIPIPRAZOLE 2 MG TABLET PO SCH ×2 (13:19→17:14)
[2019-11-18 16:00] VITALS: BP 152/85
--- NOTE | 2019-11-18 16:00 | NUR ---
RN NOTE- COAL INSPECTOR SHAFFER ON UNIT AT BEDSIDE ASSESSING PT. STATED WILL COMPLETE MED RECON
[2019-11-18] MEDS ORDERED: DEXTROSE 50%-WATER 50 ML DISP.SYRIN IV PRN (18:30)
[2019-11-18 19:52] VITALS: BP 176/86
--- NOTE | 2019-11-18 20:04 | NUR ---
GPS RN NOTE: OPENING NOTE RECEIVED PT IN ROOM RESTING IN BED, INTRODUCED MYSELF, PT IS A/O X3, DENIES PAIN AT THIS TIME, DENIES SI/HI, DENIES HEARING VOICES, PT STATED "IM DOING FINE, JUST TRYING TO TAKE IT DAY BY DAY. I DONT WANT TO HURT MYSELF, I AM DOING GOOD, JUST TRYING TO BE POSITIVE". ALL NEEDS MET AT THIS TIME, PT IS CALM, COOPERATIVE, FLAT AFFECT, APPROPRIATE, ISOLATIVE. VITAL SIGNS STABLE AT THIS TIME. ENVIRONMENTAL CHECK DONE, BED IN LOCKED AND LOWEST POSITION, BED ALARM ON. WILL CONTINUE PLAN OF CARE AND MONITOR Q15MIN FOR SAFETY AND BEHAVIOR.
[2019-11-18] MEDS: LORAZEPAM 0.5 MG TABLET PO PRN (21:06)
[2019-11-18] MEDS: hydrALAZINE HCL 25 MG TABLET PO SCH (21:07)
[2019-11-18] MEDS: BLOOD SUGAR DIAGNOSTIC 1 EACH STRIP IN SCH (21:14)
[2019-11-18] MEDS: INSULIN REGULAR, HUMAN 100 UNIT/ML 3 ML VIAL SQ PRN (21:18)
[2019-11-18] MEDS: TAMSULOSIN 0.4 MG CAP.SR.24H PO SCH (22:19)
[2019-11-18] MEDS: DONEPEZIL 5 MG TABLET PO SCH (22:19)
[2019-11-18] MEDS: ATORVASTATIN 40 MG TABLET PO SCH (22:20)
--- NOTE | 2019-11-18 22:58 | NUR ---
GPS RN NOTE SPOKE TO PT ABOUT BP MEDICATION THAT IS TO BE ADMINISTERED AT 0500 TOMORROW AND STATED "CAN YOU NOT GIVE IT TO ME AT THAT TIME AND WAKE ME UP AT 6 SO I CAN TAKE IT, THAT IS TOO EARLY". WILL CONTINUE TO DO SO AND MONITOR PT Q15MIN FOR SAFETY AND BEHAVIOR.
[2019-11-19] MEDS: hydrALAZINE HCL 25 MG TABLET PO SCH ×3 (04:56→21:07)
--- NOTE | 2019-11-19 04:56 | NUR ---
GPS RN NOTE: PAIN PT COMPLAINED OF MILD BACK PAIN AT A 3/10, REQUESTED TYLENOL. VSS, ADMINISTERED TYLENOL PRN @ 0453, WILL REASSESS AND MONITOR Q15MIN FOR SAFETY AND BEHAVIOR.
[2019-11-19 06:28] LABS: BASOPHILS % (AUTO) 0.2 % (0.0-2.0); EOSINOPHILS % (AUTO) 1.6 % (0.0-6.0); HEMATOCRIT 37 % (39-51); HEMOGLOBIN 12.5 g/dL (13.5-17.5); LYMPHOCYTES # (AUTO) 1.7 /CMM (0.8-4.8); MEAN CORPUSCULAR HGB CONC 34 g/dl (31.0-36.0); MEAN CORPUSCULAR VOLUME 89 fL (80-96); MONOCYTES # (AUTO) 0.6 /CMM (0.1-1.30); MONOCYTES % (AUTO) 10.2 % (2.0-12.0); NEUTROPHILS # (AUTO) 3.8 /CMM (1.8-8.9); PLATELET COUNT (AUTO) 145 /CMM (150-450); RED BLOOD CELL COUNT(AUTO) 4.16 MIL/uL (4.5-6.0); WHITE BLOOD COUNT (AUTO) 6.3 K/uL (4.3-11.0)
[2019-11-19 06:47] LABS: CALCIUM, SERUM 8.3 mg/dL (8.5-10.1); CREATININE 1.1 mg/dL (0.6-1.3); POTASSIUM 3.4 mmol/L (3.5-5.1)
[2019-11-19 08:00] VITALS: BP 147/89
[2019-11-19] MEDS: BLOOD SUGAR DIAGNOSTIC 1 EACH STRIP IN SCH ×4 (08:01→21:12)
[2019-11-19] MEDS: INSULIN REGULAR, HUMAN 100 UNIT/ML 3 ML VIAL SQ PRN ×3 (08:03→21:14)
[2019-11-19] MEDS: PANTOPRAZOLE 40 MG TABLET.DR PO SCH (08:07)
[2019-11-19] MEDS: DIVALPROEX SODIUM 250 MG TABLET.DR PO SCH ×4 (08:07→21:07)
[2019-11-19] MEDS: ARIPIPRAZOLE 2 MG TABLET PO SCH ×3 (08:07→17:13)
[2019-11-19] MEDS: DUTASTERIDE (0.5 MG) 0.5 MG CAPSULE PO SCH (08:08)
[2019-11-19] MEDS: ASPIRIN EC 81 MG TABLET.DR PO SCH (08:08)
[2019-11-19] MEDS: NIFEdipine XL (30MG) 30 MG TAB PO SCH (08:13)
[2019-11-19] MEDS: TOLTERODINE 2 MG CAP.SR PO SCH (08:13)
[2019-11-19] MEDS: ATENOLOL 50 MG TABLET PO SCH ×2 (08:14→17:00)
[2019-11-19] MEDS: BISACODYL SUPP (10 MG) 10 MG/SUPP.RECT SUPP.RECT RC SCH (08:16)
[2019-11-19] MEDS: LINAGLIPTIN 5 MG TABLET PO SCH (08:18)
[2019-11-19] MEDS: METFORMIN 500 MG TABLET PO SCH ×2 (08:18→17:13)
[2019-11-19] MEDS ORDERED: METFORMIN 500 MG TABLET PO SCH (09:00)
[2019-11-19] MEDS ORDERED: POTASSIUM CHLORIDE 20 MEQ TAB.PRT.SR PO SCH (11:30)
[2019-11-19 16:00] VITALS: BP 123/61
[2019-11-19] MEDS: DOCUSATE SODIUM 100 MG CAPSULE PO SCH (17:13)
[2019-11-19] MEDS: CHOLECALCIFEROL 1,000 UNIT TABLET (VIT D3) PO SCH ×2 (17:50→18:00)
[2019-11-19 19:44] VITALS: BP 150/91
--- NOTE | 2019-11-19 19:48 | NUR ---
GPS RN NOTE: ACCUCHECK PT REQUESTED AN ACCUCHECK TO BE DONE EARLY HE STATED "I WANT TO KNOW WHAT MY BLOOD SUGAR IS RIGHT NOW" ADVISED THE PT IT WAS OK THAT WE NORMALLY GIVE COVERAGE AND ACCUCHECK WHEN SCHEDULED, READ THE READING TO THE PT AND HE STATED "THAT'S FINE ILL TAKE THE INSULIN TONIGHT WHEN WE CHECK IT AGAIN, NOT NOW". WILL CONTINUE TO MONITOR Q15MIN FOR SAFETY AND BEHAVIOR.
[2019-11-19] MEDS: LORAZEPAM 0.5 MG TABLET PO PRN (20:35)
--- NOTE | 2019-11-19 20:36 | NUR ---
GPS RN NOTE PT WAS COMPLAINING OF FEELING ANXIOUS AND STRESSED, REQUESTED AN ATIVAN, VSS. ADMINISTERED 0.5MG ATIVAN PRN. WILL REASSESS AND CONTINUE TO MONITOR Q15 MIN FOR SAFETY AND BEHAVIOR.
[2019-11-19] MEDS: ATORVASTATIN 40 MG TABLET PO SCH (21:07)
[2019-11-19] MEDS: TAMSULOSIN 0.4 MG CAP.SR.24H PO SCH (21:07)
[2019-11-19] MEDS: DONEPEZIL 5 MG TABLET PO SCH (21:07)
[2019-11-20] MEDS: hydrALAZINE HCL 25 MG TABLET PO SCH ×3 (05:20→21:21)
[2019-11-20 08:00] VITALS: BP 119/73
[2019-11-20] MEDS: BISACODYL SUPP (10 MG) 10 MG/SUPP.RECT SUPP.RECT RC SCH (09:00)
[2019-11-20] MEDS: BLOOD SUGAR DIAGNOSTIC 1 EACH STRIP IN SCH ×4 (09:13→21:51)
[2019-11-20] MEDS: DIVALPROEX SODIUM 250 MG TABLET.DR PO SCH ×4 (09:15→21:19)
[2019-11-20] MEDS: ARIPIPRAZOLE 2 MG TABLET PO SCH ×3 (09:15→16:37)
[2019-11-20] MEDS: ATENOLOL 50 MG TABLET PO SCH ×2 (09:16→16:38)
[2019-11-20] MEDS: LINAGLIPTIN 5 MG TABLET PO SCH (09:16)
[2019-11-20] MEDS: ASPIRIN EC 81 MG TABLET.DR PO SCH (09:16)
[2019-11-20] MEDS: NIFEdipine XL (30MG) 30 MG TAB PO SCH (09:16)
[2019-11-20] MEDS: PANTOPRAZOLE 40 MG TABLET.DR PO SCH (09:17)
[2019-11-20] MEDS: METFORMIN 500 MG TABLET PO SCH ×2 (09:17→16:37)
[2019-11-20] MEDS: DUTASTERIDE (0.5 MG) 0.5 MG CAPSULE PO SCH (09:20)
[2019-11-20] MEDS: TOLTERODINE 2 MG CAP.SR PO SCH (09:20)
[2019-11-20] MEDS: INSULIN REGULAR, HUMAN 100 UNIT/ML 3 ML VIAL SQ PRN (11:34)
[2019-11-20 16:00] VITALS: BP 107/65
[2019-11-20] MEDS: CHOLECALCIFEROL 1,000 UNIT TABLET (VIT D3) PO SCH (17:03)
[2019-11-20] MEDS: DOCUSATE SODIUM 100 MG CAPSULE PO SCH (17:03)
[2019-11-20 20:00] VITALS: BP 147/82
[2019-11-20] MEDS: LORAZEPAM 0.5 MG TABLET PO PRN (20:21)
[2019-11-20] MEDS: TAMSULOSIN 0.4 MG CAP.SR.24H PO SCH (21:20)
[2019-11-20] MEDS: DONEPEZIL 5 MG TABLET PO SCH (21:20)
[2019-11-20] MEDS: ATORVASTATIN 40 MG TABLET PO SCH (21:20)
[2019-11-20] MEDS: TEMAZEPAM 7.5 MG CAPSULE PO PRN (23:21)
--- NOTE | 2019-11-21 00:02 | NUR ---
GPS RN NOTE: INSOMNIA PT WAS WALKING AROUND RESTLESS, PT REQUESTED SOMETHING FOR SLEEP. ADMINISTERED RESTORIL PRN @ 5366, WILL REASSESS AND CONTINUE TO MONITOR Q15 MIN FOR SAFETY AND BEHAVIOR.
[2019-11-21] MEDS: hydrALAZINE HCL 25 MG TABLET PO SCH ×3 (05:36→21:21)
[2019-11-21] MEDS: BLOOD SUGAR DIAGNOSTIC 1 EACH STRIP IN SCH ×4 (07:53→21:23)
[2019-11-21 08:00] VITALS: BP 145/80
[2019-11-21] MEDS: ASPIRIN EC 81 MG TABLET.DR PO SCH (08:45)
[2019-11-21] MEDS: PANTOPRAZOLE 40 MG TABLET.DR PO SCH (08:45)
[2019-11-21] MEDS: ARIPIPRAZOLE 2 MG TABLET PO SCH ×4 (08:45→21:13)
[2019-11-21] MEDS: DUTASTERIDE (0.5 MG) 0.5 MG CAPSULE PO SCH (08:46)
[2019-11-21] MEDS: NIFEdipine XL (30MG) 30 MG TAB PO SCH (08:46)
[2019-11-21] MEDS: TOLTERODINE 2 MG CAP.SR PO SCH (08:46)
[2019-11-21] MEDS: DIVALPROEX SODIUM 250 MG TABLET.DR PO SCH ×4 (08:46→21:13)
[2019-11-21] MEDS: METFORMIN 500 MG TABLET PO SCH ×2 (08:46→17:29)
[2019-11-21] MEDS: LINAGLIPTIN 5 MG TABLET PO SCH (08:47)
[2019-11-21] MEDS: ATENOLOL 50 MG TABLET PO SCH ×2 (08:47→17:30)
[2019-11-21] MEDS: BISACODYL SUPP (10 MG) 10 MG/SUPP.RECT SUPP.RECT RC SCH (08:54)
[2019-11-21 16:00] VITALS: BP 135/79
[2019-11-21] MEDS: CHOLECALCIFEROL 1,000 UNIT TABLET (VIT D3) PO SCH (17:30)
[2019-11-21] MEDS: DOCUSATE SODIUM 100 MG CAPSULE PO SCH (17:33)
--- NOTE | 2019-11-21 18:49 | NUR ---
GPS RN CLOSING NOTES Patient resting in bed. A/O x 3-4. VS stable with no acute distress. Breathing even and unlabored on room air with no respiratory distress. Denies pain. No signs and symptoms of pain. Denies SI/HI. All medications administered. Safety precautions in place. Bed locked and set to lowest position with side rails x 2 up. All needs rendered at this time. Call light within reach. Will endorse plan of care to oncoming shift.
[2019-11-21 19:53] VITALS: BP 136/76
[2019-11-21] MEDS: DONEPEZIL 5 MG TABLET PO SCH (21:12)
[2019-11-21] MEDS: ATORVASTATIN 40 MG TABLET PO SCH (21:13)
[2019-11-21] MEDS: TAMSULOSIN 0.4 MG CAP.SR.24H PO SCH (21:14)
[2019-11-21] MEDS: LORAZEPAM 0.5 MG TABLET PO PRN (21:21)
--- NOTE | 2019-11-21 21:22 | NUR ---
GPS RN NOTE: ANXIETY PT STATED HE WAS FEELING IRRITABLE, ANXIOUS AND REQUESTED ATIVAN. VSS, ADMIN ATIVAN PRN @ 2120. WILL REASSESS AND CONTINUE TO MONITOR Q15MIN FOR SAFETY AND BEHAVIOR
[2019-11-22] MEDS: hydrALAZINE HCL 25 MG TABLET PO SCH ×3 (05:51→21:12)
[2019-11-22 06:50] LABS: BASOPHILS % (AUTO) 0.4 % (0.0-2.0); EOSINOPHILS % (AUTO) 1.9 % (0.0-6.0); HEMATOCRIT 38 % (39-51); HEMOGLOBIN 12.6 g/dL (13.5-17.5); LYMPHOCYTES # (AUTO) 1.4 /CMM (0.8-4.8); LYMPHOCYTES % (AUTO) 21.6 % (20.0-44.0); MEAN CORPUSCULAR HGB CONC 34 g/dl (31.0-36.0); MEAN CORPUSCULAR VOLUME 90 fL (80-96); MONOCYTES # (AUTO) 0.6 /CMM (0.1-1.30); MONOCYTES % (AUTO) 9.7 % (2.0-12.0); NEUTROPHILS # (AUTO) 4.2 /CMM (1.8-8.9); NEUTROPHILS % (AUTO) 66.4 % (43.0-81.0); PLATELET COUNT (AUTO) 155 /CMM (150-450); RED BLOOD CELL COUNT(AUTO) 4.18 MIL/uL (4.5-6.0); WHITE BLOOD COUNT (AUTO) 6.3 K/uL (4.3-11.0)
[2019-11-22 08:00] VITALS: BP 125/76
[2019-11-22] MEDS: BLOOD SUGAR DIAGNOSTIC 1 EACH STRIP IN SCH ×4 (08:45→21:16)
[2019-11-22] MEDS: BISACODYL SUPP (10 MG) 10 MG/SUPP.RECT SUPP.RECT RC SCH (09:00)
--- NOTE | 2019-11-22 09:00 | NUR ---
INDIVIDUAL INTERVENTION: SW assessed for suicidality and pt stated that today he is no longer having thoughts of suicide.
[2019-11-22 09:25] LABS: ALBUMIN 2.6 g/dL (3.4-5.0); BILIRUBIN,TOTAL 0.4 mg/dL (0.2-1.0); CALCIUM, SERUM 8.2 mg/dL (8.5-10.1); CREATININE 1.1 mg/dL (0.6-1.3); POTASSIUM 3.8 mmol/L (3.5-5.1); TOTAL PROTEIN, SERUM 5.4 g/dL (6.4-8.2)
--- NOTE | 2019-11-22 09:48 | NUR ---
FAMILY CONTACT: DARIAN received a call from pts son Brendon Ricketts ([phone]) requesting updated information and discharge plan. DARIAN informed him that [facility] may not accept pt back due to his bizarre behavior and elopement from the facility. SW informed son that pt is refusing to be discharged back to a SNF. Per son, he states that pts is unable to care for pt and that pt needs to be in a locked SNF. He states that pt has deteriorated and is a danger to himself. Son wishes to file for conservatorship and stated he will talk to MD to request a Capacity Declaration Form. DARIAN also suggested he contact pts outside psychiatrist Dr. Oul Kaye Address: [address], [place] [address] for additional support.
[2019-11-22] MEDS: TOLTERODINE 2 MG CAP.SR PO SCH (09:57)
[2019-11-22] MEDS: ARIPIPRAZOLE 2 MG TABLET PO SCH ×4 (09:57→21:12)
[2019-11-22] MEDS: METFORMIN 500 MG TABLET PO SCH ×2 (09:58→18:22)
[2019-11-22] MEDS: PANTOPRAZOLE 40 MG TABLET.DR PO SCH (09:58)
[2019-11-22] MEDS: ASPIRIN EC 81 MG TABLET.DR PO SCH (09:58)
[2019-11-22] MEDS: DUTASTERIDE (0.5 MG) 0.5 MG CAPSULE PO SCH (09:58)
[2019-11-22] MEDS: LINAGLIPTIN 5 MG TABLET PO SCH (09:58)
[2019-11-22] MEDS: DIVALPROEX SODIUM 250 MG TABLET.DR PO SCH ×3 (09:58→18:23)
[2019-11-22] MEDS: NIFEdipine XL (30MG) 30 MG TAB PO SCH (09:59)
[2019-11-22] MEDS: ATENOLOL 50 MG TABLET PO SCH ×2 (10:45→18:25)
--- NOTE | 2019-11-22 11:30 | NUR ---
ua,urine culture sent as per orders.
[2019-11-22 14:48] LABS: APPEARANCE,URINE CLEAR (CLEAR); BILIRUBIN,URINE NEGATIVE (NEGATIVE); BLOOD, URINE NEGATIVE Ery/uL (NEGATIVE); COLOR,URINE YELLOW (YELLOW); KETONES,URINE 15 (NEGATIVE); LEUKOCYTE ESTERASE ,URINE NEGATIVE (NEGATIVE); NITRITE, URINE NEGATIVE (NEGATIVE); PROTEIN,URINE 100 mg/dl (NEGATIVE); UGLUCOSE NEGATIVE (NEGATIVE)
[2019-11-22 15:07] LABS: BACTERIA,URINE Rare /HPF (None Seen); RBC,URINE 0-2 /HPF (0-2); SQUAMOUS EPITHELIAL CELL,UR None Seen /HPF (None Seen)
[2019-11-22 16:00] VITALS: BP 150/78
--- NOTE | 2019-11-22 18:00 | NUR ---
NO CHANGES IN STATUS.
[2019-11-22] MEDS: DOCUSATE SODIUM 100 MG CAPSULE PO SCH (18:22)
[2019-11-22] MEDS: CHOLECALCIFEROL 1,000 UNIT TABLET (VIT D3) PO SCH (18:22)
[2019-11-22] MEDS: LORAZEPAM 0.5 MG TABLET PO PRN (20:40)
--- NOTE | 2019-11-22 20:40 | NUR ---
GPS RN NOTE: ANXIETY PT C/O OF FEELING ANXIOUS, RESTLESS, IRRITABLE, REQUESTED PRN ATIVAN, ADMIN ATIVAN PRN @ 2039, WILL REASSESS CONTINUE TO MONITOR Q15MIN FOR SAFETY AND BEHAVIOR.
[2019-11-22] MEDS: DONEPEZIL 5 MG TABLET PO SCH (21:12)
[2019-11-22] MEDS: DIVALPROEX SODIUM 500 MG TABLET.DR PO SCH (21:12)
[2019-11-22] MEDS: ATORVASTATIN 40 MG TABLET PO SCH (21:12)
[2019-11-22] MEDS: TAMSULOSIN 0.4 MG CAP.SR.24H PO SCH (21:12)
[2019-11-22] MEDS ORDERED: DIVALPROEX SODIUM 250 MG TABLET.DR PO SCH (22:00)
[2019-11-22] MEDS: TEMAZEPAM 7.5 MG CAPSULE PO PRN (22:51)
--- NOTE | 2019-11-22 22:55 | NUR ---
GPS RN NOTE: INSOMNIA PT WAS PACING UP AND DOWN THE MIDDLETON STATED HE WAS HAVING DIFFICULTY SLEEPING, REQUESTED SOMETHING FOR SLEEP. ADMINISTERED RESTORIL PRN @ 2231. WILL REASSESS AND CPNTINUE TO MONITOR
[2019-11-23 03:32] VITALS: BP 115/70
[2019-11-23] MEDS: hydrALAZINE HCL 25 MG TABLET PO SCH ×3 (05:55→21:11)
--- NOTE | 2019-11-23 06:15 | NUR ---
GPS RN NOTE SPOKE TO THE PT ABOUT UA RESULTS, ASKED THE PT IF HE WAS HAVING ANY DIFFICULTY, PAIN OR BURNING SENSATION WHEN URINATING, HE STATED "NO NOT AT ALL, I'VE HAD AN INFECTION BEFORE AND I DEFINITELY DON'T HAVE ONE" TOLD THE PT WE WERE WAITING ON THE URINE CULTURE RESULTS HE SAID "OK THANK YOU KEEP ME UPDATED BUT IM FINE OF NOW".
[2019-11-23] MEDS: BLOOD SUGAR DIAGNOSTIC 1 EACH STRIP IN SCH ×4 (07:07→22:12)
[2019-11-23 08:00] VITALS: BP 151/75
[2019-11-23] MEDS: ASPIRIN EC 81 MG TABLET.DR PO SCH (08:52)
[2019-11-23] MEDS: DIVALPROEX SODIUM 250 MG TABLET.DR PO SCH ×3 (08:53→18:01)
[2019-11-23] MEDS: ARIPIPRAZOLE 2 MG TABLET PO SCH ×4 (08:53→21:33)
[2019-11-23] MEDS: LINAGLIPTIN 5 MG TABLET PO SCH (08:53)
[2019-11-23] MEDS: TOLTERODINE 2 MG CAP.SR PO SCH (08:53)
[2019-11-23] MEDS: ATENOLOL 50 MG TABLET PO SCH ×2 (08:53→18:02)
[2019-11-23] MEDS: DUTASTERIDE (0.5 MG) 0.5 MG CAPSULE PO SCH (08:53)
[2019-11-23] MEDS: NIFEdipine XL (30MG) 30 MG TAB PO SCH (08:53)
[2019-11-23] MEDS: BISACODYL SUPP (10 MG) 10 MG/SUPP.RECT SUPP.RECT RC SCH (08:55)
[2019-11-23] MEDS: PANTOPRAZOLE 40 MG TABLET.DR PO SCH (08:58)
--- NOTE | 2019-11-23 09:01 | NUR ---
WOUND CARE CONSULT: PT REFUSED SKIN ASSESSMENT. PT NOTED TO BE AMBULATORY AND CONTINENT. WILL SEE PRN.
[2019-11-23] MEDS: METFORMIN 500 MG TABLET PO SCH ×2 (10:15→18:01)
--- NOTE | 2019-11-23 11:15 | NUR ---
FAMILY CONTACT: SW received a call from pts son Brendon Ricketts ([phone]) stating that pts wishes for pt to return home. He states that even though he and pts daughter wish for pt to be discharged to a locked SNF, pts makes the ultimate decision and she wishes for pt to return home. Son states that feels she can manage pts behavior and medications and is requesting caregiving resources. SW stated that she will email son ( ) caregiving resources.
--- NOTE | 2019-11-23 12:30 | NUR ---
INDIVIDUAL INTERVENTION: SW assessed for suicidality and pt stated that today he is no longer having thoughts of suicide. SW encouraged pt to attend group milieu and pt stated that he did not want to be around "crazy people." Pt stated he does not need to be here and wants to be at home with his so he can care for her. Pts mood is less irritable and manic but remains isolative and withdrawn.
--- NOTE | 2019-11-23 13:57 | NUR ---
FAMILY CONTACT: SW received a call from pts Marilee Ricketts at [phone] requesting pt be discharged as soon as possible under her care. She states that pt does not need caregiving services and that she is able to care for pt on her own. is demanding that pt be discharged under her care and wants to know when she is able to come pick him up. states that pts son Terrance is "child proofing" their home and also states that pt is not authorized to drive and also stated that she will be coordinating with pts outside psychiatrist. SW stated that she will inform Dr. Braxton and stated that pt has an anticipated discharge for Thursday11/25/19. stated that she really wants pt home by Thursday and stated she will come pick pt up. SW stated that she will confirm discharge with MD and notify her.
--- NOTE | 2019-11-23 14:29 | NUR ---
FAMILY CONTACT: SW contacted pts son Brendon Ricketts ([phone]) and left a voicemail informing him that MD has given discharge order for Thursday11/25/19. SW also informed him that pts has refused caregiving services and stated that if pt becomes unmanageable at home that can call 911 or take him to the nearest emergency room for a psychiatric evaluation.
--- NOTE | 2019-11-23 14:34 | NUR ---
FAMILY CONTACT: SW contacted pts Marilee Ricketts at [phone] to confirm pts discharge for Thursday11/25/19. SW sated that she will be contacting Dr. Rader to schedule a follow up psychiatric appointment. SW also stated that if pt becomes unmanageable at home should can call 911 or take him to the nearest emergency room for a psychiatric evaluation. agreed.
--- NOTE | 2019-11-23 14:37 | NUR ---
DARIAN COORDINATION OF CARE: DARIAN contacted pts outside psychiatrist Dr. Olu Kaye Address: [facility] [address] , [place] [address] and an follow up appointment was scheduled for Thursday11/29/19 at 3:15pm.
--- NOTE | 2019-11-23 15:08 | NUR ---
FAMILY CONTACT: SW received a call from pts son Terrance Ricketts ([phone]) who agreed with pts discharge plan and states that pt will be limited with his access to the telephone and internet use. Son also states that pts is very capable of caring for pt and states that family will be very supportive and if any issues arise pts will be advised to call 911. SW informed him that a psychiatrist follow up appointment has been scheduled and stated that pts confirmed pickle pumper for Thursday11/25/19.
--- NOTE | 2019-11-23 15:55 | NUR ---
dr. reina in earlier as well as jennifer nolan.orders given.
[2019-11-23 16:00] VITALS: BP 142/81
[2019-11-23] MEDS: CHOLECALCIFEROL 1,000 UNIT TABLET (VIT D3) PO SCH (18:04)
[2019-11-23 20:00] VITALS: BP 151/75
[2019-11-23 20:11] VITALS: BP 151/75
[2019-11-23] MEDS: DONEPEZIL 5 MG TABLET PO SCH (22:12)
[2019-11-23] MEDS: ATORVASTATIN 40 MG TABLET PO SCH (22:12)
[2019-11-23] MEDS: DIVALPROEX SODIUM 500 MG TABLET.DR PO SCH (22:13)
[2019-11-23] MEDS: TAMSULOSIN 0.4 MG CAP.SR.24H PO SCH (22:13)
[2019-11-24] MEDS: hydrALAZINE HCL 25 MG TABLET PO SCH ×3 (05:50→21:04)
[2019-11-24 08:00] VITALS: BP 146/74
[2019-11-24] MEDS: BLOOD SUGAR DIAGNOSTIC 1 EACH STRIP IN SCH ×4 (08:12→21:39)
[2019-11-24] MEDS: NIFEdipine XL (30MG) 30 MG TAB PO SCH (09:10)
[2019-11-24] MEDS: ASPIRIN EC 81 MG TABLET.DR PO SCH (09:10)
[2019-11-24] MEDS: TOLTERODINE 2 MG CAP.SR PO SCH (09:10)
[2019-11-24] MEDS: DUTASTERIDE (0.5 MG) 0.5 MG CAPSULE PO SCH (09:11)
[2019-11-24] MEDS: PANTOPRAZOLE 40 MG TABLET.DR PO SCH (09:11)
[2019-11-24] MEDS: ATENOLOL 50 MG TABLET PO SCH ×2 (09:11→17:37)
[2019-11-24] MEDS: DIVALPROEX SODIUM 250 MG TABLET.DR PO SCH ×3 (09:11→17:37)
[2019-11-24] MEDS: METFORMIN 500 MG TABLET PO SCH ×2 (09:11→17:37)
[2019-11-24] MEDS: LINAGLIPTIN 5 MG TABLET PO SCH (09:11)
[2019-11-24] MEDS: ARIPIPRAZOLE 2 MG TABLET PO SCH ×4 (09:12→21:04)
--- NOTE | 2019-11-24 12:37 | NUR ---
GPS/RN-NOTES PATIENT BS WAS 146 MG/DL, 2 UNITS OF REGULAR INSULIN REFUSED. STATED" I DON'T WANT IT". EXPLAINED RISK AND BENEFITS BUT PATIENT STILL REFUSED. NO DENIES ANY S/SX OF HYPERGLYCEMIA.
--- NOTE | 2019-11-24 14:12 | NUR ---
FAMILY CONTACT: DARIAN contacted pts aMrilee Ricektts at [phone] to discuss pts discharge plan for tomorrow. states that she will pick pt up between 12:00pm-1:00pm.
--- NOTE | 2019-11-24 14:16 | NUR ---
DARIAN COORDINATION OF CARE: DARIAN contacted Dr. Maxwell Ortiz Address: [address], [place] [address] and left a voicemail with Bridgette, legal administrative secretary, requesting a follow up appointment.
--- NOTE | 2019-11-24 14:57 | NUR ---
INDIVIDUAL INTERVENTION: SW assessed for suicidality and pt stated that today he is no longer having thoughts of suicide. SW encouraged pt to attend group milieu and pt stated that he would rather stay in his room. SW discussed his discharge plan for tomorrow and pt agreed and stated he was very happy to be going home with his and stated he missed her very much.
[2019-11-24 15:28] LABS: CALCIUM, SERUM 8.3 mg/dL (8.5-10.1); CREATININE 1.1 mg/dL (0.6-1.3)
[2019-11-24 15:40] LABS: BASOPHILS % (AUTO) 0.2 % (0.0-2.0); EOSINOPHILS % (AUTO) 1.5 % (0.0-6.0); HEMATOCRIT 40 % (39-51); HEMOGLOBIN 13.3 g/dL (13.5-17.5); LYMPHOCYTES # (AUTO) 1.5 /CMM (0.8-4.8); LYMPHOCYTES % (AUTO) 23.4 % (20.0-44.0); MEAN CORPUSCULAR HGB CONC 33 g/dl (31.0-36.0); MEAN CORPUSCULAR VOLUME 91 fL (80-96); MONOCYTES # (AUTO) 0.5 /CMM (0.1-1.30); MONOCYTES % (AUTO) 7.1 % (2.0-12.0); NEUTROPHILS # (AUTO) 4.4 /CMM (1.8-8.9); NEUTROPHILS % (AUTO) 67.8 % (43.0-81.0); PLATELET COUNT (AUTO) 169 /CMM (150-450); RED BLOOD CELL COUNT(AUTO) 4.46 MIL/uL (4.5-6.0); WHITE BLOOD COUNT (AUTO) 6.5 K/uL (4.3-11.0)
--- NOTE | 2019-11-24 15:45 | NUR ---
DARIAN COORDINATION OF CARE: DARIAN received a call from Bridgette, construction project manager at Dr. Maxwell Ortiz's Office Address: [facility] [address], [place] [address] and scheduled a follow up appointment on Thursday12/02/19 at 1100am.
[2019-11-24 16:00] VITALS: BP 137/77
[2019-11-24] MEDS: CHOLECALCIFEROL 1,000 UNIT TABLET (VIT D3) PO SCH (17:37)
[2019-11-24 20:00] VITALS: BP 143/89
[2019-11-24 20:08] VITALS: BP 143/89
--- NOTE | 2019-11-24 21:07 | NUR ---
GPS RN NOTE PATIENT IS WATCHING TV AT THIS TIME. RELAXED, CALM, ENGAGES IN CONVERSATION. ASKED THE PATIENT HOW HE IS FEELING ABOUT DISCHARGING TOMORROW, PATIENT STATED," I AM GOING HOME TOMORROW, MY IS PICKING ME UP, I AM HAPPY TO GO HOME." DISCUSSED WITH THE PATIENT TO TAKE GOOD CARE OF HIMSELF, BE SAFE, STAY CALM & VERBALIZE HIS FEELINGS TO FAMILY MEMBERS WHEN HE IS HOME & PATIENT STATED," YES, I WILL TAKE GOOD CARE OF MYSELF & MY FAMILY, MY KIDS ARE VERY NICE, SON LIVES CLOSE TO [place] & DAUGHTER LIVES IN [place] & THEY COME TO VISIT US EVERY 3-4 WEEKS NOW." PATIENT ALSO VERBALIZED THAT HE VISITED [facility] TIME BACK & LIKED IT & WILL PLAN TO GO AGAIN. PATIENT IS HAPPY TO BE DISCHARGED HOME TOMORROW & PROMISED TO CONTRACT FOR SAFETY. CONTINUING PLAN OF CARE AT THIS TIME.
[2019-11-24] MEDS: TAMSULOSIN 0.4 MG CAP.SR.24H PO SCH (21:39)
[2019-11-24] MEDS: DONEPEZIL 5 MG TABLET PO SCH (21:39)
[2019-11-24] MEDS: ATORVASTATIN 40 MG TABLET PO SCH (21:39)
[2019-11-24] MEDS: INSULIN REGULAR, HUMAN 100 UNIT/ML 3 ML VIAL SQ PRN (21:42)
[2019-11-24] MEDS: DIVALPROEX SODIUM 500 MG TABLET.DR PO SCH (22:00)
[2019-11-24] MEDS: TEMAZEPAM 7.5 MG CAPSULE PO PRN (23:06)
--- NOTE | 2019-11-24 23:07 | NUR ---
GPS RN NOTE: INSOMNIA PATIENT VERBALIZED THAT HE UNABLE TO SLEEP & REQUESTED TO TAKE SLEEPING MEDICINE, PRN RESTORIL 7.5 MG 1 CAP PO GIVEN. WILL CONTINUE TO MONITOR
[2019-11-25] MEDS: LORAZEPAM 0.5 MG TABLET PO PRN (03:00)
--- NOTE | 2019-11-25 03:01 | NUR ---
GPS RN NOTE: ANXIETY PATIENT IS AWAKE & VERBALIZED THAT HE IS RESTLESS & ANXIOUS & REQUESTED TO GET ATIVAN, PRN ATIVAN 0.5 MG 1 TAB PO GIVEN. WILL CONTINUE TO MONITOR.
[2019-11-25] MEDS: hydrALAZINE HCL 25 MG TABLET PO SCH ×2 (05:11→12:29)
[2019-11-25 07:36] LABS: BASOPHILS % (AUTO) 0.3 % (0.0-2.0); EOSINOPHILS % (AUTO) 1.9 % (0.0-6.0); HEMATOCRIT 37 % (39-51); HEMOGLOBIN 12.6 g/dL (13.5-17.5); LYMPHOCYTES # (AUTO) 1.8 /CMM (0.8-4.8); LYMPHOCYTES % (AUTO) 26.4 % (20.0-44.0); MEAN CORPUSCULAR HGB CONC 34 g/dl (31.0-36.0); MEAN CORPUSCULAR VOLUME 90 fL (80-96); MONOCYTES # (AUTO) 0.5 /CMM (0.1-1.30); MONOCYTES % (AUTO) 7.4 % (2.0-12.0); NEUTROPHILS # (AUTO) 4.3 /CMM (1.8-8.9); PLATELET COUNT (AUTO) 164 /CMM (150-450); RED BLOOD CELL COUNT(AUTO) 4.17 MIL/uL (4.5-6.0); WHITE BLOOD COUNT (AUTO) 6.7 K/uL (4.3-11.0)
[2019-11-25 07:53] LABS: ALBUMIN 2.7 g/dL (3.4-5.0); BILIRUBIN,TOTAL 0.2 mg/dL (0.2-1.0); CALCIUM, SERUM 7.8 mg/dL (8.5-10.1); MAGNESIUM 1.4 mg/dL (1.8-2.4); POTASSIUM 3.5 mmol/L (3.5-5.1); TOTAL PROTEIN, SERUM 5.5 g/dL (6.4-8.2)
[2019-11-25 08:00] VITALS: BP 157/93
[2019-11-25] MEDS: ASPIRIN EC 81 MG TABLET.DR PO SCH (08:22)
[2019-11-25] MEDS: DUTASTERIDE (0.5 MG) 0.5 MG CAPSULE PO SCH (08:22)
[2019-11-25] MEDS: BLOOD SUGAR DIAGNOSTIC 1 EACH STRIP IN SCH ×2 (08:22→12:08)
[2019-11-25] MEDS: TOLTERODINE 2 MG CAP.SR PO SCH (08:22)
[2019-11-25] MEDS: DIVALPROEX SODIUM 250 MG TABLET.DR PO SCH ×2 (08:23→12:28)
[2019-11-25] MEDS: METFORMIN 500 MG TABLET PO SCH (08:23)
[2019-11-25] MEDS: LINAGLIPTIN 5 MG TABLET PO SCH (08:23)
[2019-11-25] MEDS: NIFEdipine XL (30MG) 30 MG TAB PO SCH (08:23)
[2019-11-25] MEDS: PANTOPRAZOLE 40 MG TABLET.DR PO SCH (08:23)
[2019-11-25] MEDS: ATENOLOL 50 MG TABLET PO SCH (08:23)
[2019-11-25] MEDS: ARIPIPRAZOLE 2 MG TABLET PO SCH ×2 (08:23→12:28)
--- NOTE | 2019-11-25 08:36 | NUR ---
DISCHARGE NOTE: Pt will be discharged via private vehicle between 12:00pm-1:00pm home [address] [place] [address]. Pts , Marilee ([phone]) will be picking pt up and transporting home. Pts mood is euthymic with congruent affect. Pt denied visual/auditory hallucinations and denied suicidal/homicidal ideation. Pt is alert and oriented x3 to self, place, and time. Pt is appropriately dressed and groomed and ambulatory. Pt will follow up with Psychiatrist: Dr. Olu Kaye Address: [address], [place] [address] on Thursday11/29/19 at 3:15pm and also follow up with Transfer Driver: Dr. Maxwell Ortiz Address: [address], [place] [address] on Thursday12/02/19 at 11:00am. The multidisciplinary exit care form was done, printed, signed, and given to the patient. Addendum: 11/25/[address] FARMER FAMILY CONTACT: DARIAN contacted pts Marilee Ricketts at [phone] to inform her pt may not be discharging on this present day due to pt possibly being infected with C DIFF. DARIAN transferred the call the nurse as was unhappy with this information. Addendum: 11/25/[address] FARMER FAMILY CONTACT: DARIAN contacted pts Marilee Ricketts at [phone] to inform her pt has been cleared for discharge. states she will be picking pt up between 12:00pm-1:00pm.
[2019-11-25] MEDS ORDERED: MAGNESIUM OXIDE 400 MG TABLET PO ONE (10:30)
[2019-11-25 12:29] VITALS: BP 136/78
--- NOTE | 2019-11-25 12:38 | NUR ---
GPS/PANTOGRAPHER NOTES RECEIVED DISCHARGE ORDER FROM KARYNA MATUTE MADE AWARE AND AGREED OF THE DISCHARGE ALSO EDMUND ORDERED HOME HEALTH FOR [place].EDMUND ALSO AWARE THAT THE C-DIFF RESULTS IS PENDING STATED "IF THE RESULTS IS POSITIVE I WILL INFORM THE PATIENT". CHARGE NURSE ALSO AWARE. PATIENT WAS DISCHARGE TO HOME. ALL DISCHARGE MEDICATIONS WAS REVIEWED WITH THE PATIENT, HE SIGN ALL DISCHARGE PAPERS. PATIENT DID NOT VERBALIZE SI/HI,DENIES VISUAL/AUDITORY HALLUCINATIONS AT THE TIME OF DISCHARGE. INSTRUCTED PATIENT TO GO TO THE NEAREST EMERGENCY FACILITY IN CASE OF EMERGENCY AND TO FOLLOW UP WITH PCP AND PSYCHIATRIST IN A WEEK OR NEEDED. 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 PATIENT LEFT THE UNIT IN STABLE CONDITION ALERT ORIENTED X3 AMBULATORY STEADY GAIT.PATIENT WAS WHEELED DOWN BY ONE DISABILITY LIAISON OFFICER STAFF IN THE LOBBY FOR SAFETY. ALL BELONGINGS WAS GIVEN BACK TO THE PATIENT INCLUDING RX AND DISCHARGE PAPERS.
--- NOTE | 2019-11-25 13:05 | NUR ---
HOME HEALTH REFERRAL: faxed home health referral to [facility] Address: [address] [place] [address]
== END 2019-11-25 12:35 | disposition home or self-care (01) | DRG 885 ==
LOC: ER 23:18 → GPS 11-18 01:57
PROVIDERS: ADMIT Psychiatry & Neurology Psychosomatic Medicine; ATTEND Nurse Practitioner Acute Care
DX: F25.0 Schizoaffective disorder, bipolar type (principal); N17.0 Acute kidney failure with tubular necrosis; E11.65 Type 2 diabetes mellitus with hyperglycemia; R45.851 Suicidal ideations; E87.0 Hyperosmolality and hypernatremia; F41.9 Anxiety disorder, unspecified; F09 Unspecified mental disorder due to known physiological condition; A08.4 Viral intestinal infection, unspecified; E87.6 Hypokalemia; E86.0 Dehydration; E78.5 Hyperlipidemia, unspecified; N40.0 Benign prostatic hyperplasia without lower urinary tract symptoms; K21.9 Gastro-esophageal reflux disease without esophagitis; K59.00 Constipation, unspecified; I10 Essential (primary) hypertension; F03.90 Unspecified dementia, unspecified severity, without behavioral disturbance, psychotic disturbance, mood disturbance, and anxiety; F31.9 Bipolar disorder, unspecified
CPT/HCPCS: 36415; 80048-TC; 80053-TC; 80061-TC; 80076-TC; 80164-TC; 80305; 81000-TC; 82962-TC; 83735-TC; 85025-TC; 87081-TC; 87086-TC; 97116-TC; 97530-TC; C9803-CS; G0480; J1815